=== PATIENT | female | born 1955 | race Caucasian/White ===

== ENCOUNTER 2017-02-12 07:40 | Inpatient (IN) | payer MEDICAID ==
[2017-02-12] MEDS ORDERED: CLINDAMYCIN HCL 150 MG CAPSULE PO ONE (09:35)
--- NOTE | 2017-02-12 10:22 | ER Document Report ---
ED General - General Chief Complaint: Leg Pain Stated Complaint: ARM/LEG PAIN Time Seen by Provider: 02/12/17 09:30 TRAVEL OUTSIDE OF THE [place] IN LAST 30 DAYS: No - HPI Patient complains to provider of: Left leg swelling and redness left elbow pain Notes: Patient with a history of chronic cellulitis coming in today for erythema. Patient ongoing for the last 3 days spreading. Patient denies fever chills nausea vomiting diarrhea. Patient denies any history of trauma. Patient also complaining of left elbow pain. Patient states increased pain with movement. No history of trauma. Patient alert and oriented no obvious distress upon my evaluation. Patient with multiple admissions and visits to the ER to the hospital for cellulitis in the past. Last antibiotic patient was always clindamycin per - Related Data Allergies/Adverse Reactions: No Known Allergies Allergy (Verified 02/12/17 07:43) Past Medical History - Social History Smoking Status: Former Smoker Chew tobacco use (# tins/day): No Frequency of alcohol use: None Drug Abuse: None Family History: Reviewed & Not Pertinent Patient has suicidal ideation: No Patient has homicidal ideation: No - Past Medical History Cardiac Medical History: Reports: Hx Hypertension - Not currently treated Denies: Hx Congestive Heart Failure, Hx Heart Attack Pulmonary Medical History: Reports: Hx Pneumonia Denies: Hx Asthma, Hx Bronchitis, Hx COPD, Hx Tuberculosis Neurological Medical History: Denies: Hx Seizures Endocrine Medical History: Denies: Hx Diabetes Mellitus Type 1, Hx Diabetes Mellitus Type 2 Renal/ Medical History: Denies: Hx End Stage Renal Disease, Hx Kidney Stones, Hx Peritoneal Dialysis GI Medical History: Denies: Hx Cirrhosis, Hx Gastroesophageal Reflux Disease, Hx Ulcer Musculoskeltal Medical History: Reports Hx Arthritis - feet, Denies Hx Multiple Sclerosis Skin Medical History: Reports Hx Cellulitis - LEFT LEG MAY 2011. Psychiatric Medical History: Reports: Hx Depression Denies: Hx Bipolar Disorder, Hx Schizophrenia Surgical Hx: Negative Past Surgical History: Reports: Hx Hysterectomy - Immunizations Hx Diphtheria, Pertussis, Tetanus Vaccination: Yes - unknown Hx Pneumococcal Vaccination: 05/22/14 Review of Systems - Review of Systems Constitutional: No symptoms reported EENT: No symptoms reported Cardiovascular: No symptoms reported Respiratory: No symptoms reported Gastrointestinal: No symptoms reported Genitourinary: No symptoms reported Female Genitourinary: No symptoms reported Musculoskeletal: Other - Leg swelling elbow pain Skin: No symptoms reported Hematologic/Lymphatic: No symptoms reported Neurological/Psychological: No symptoms reported Physical Exam - Vital signs Vitals: Temp Pulse Resp BP Pulse Ox 98.4 F 102 H 20 147/84 H 96 02/12/17 07:44 02/12/17 07:44 02/12/17 07:44 02/12/17 07:44 02/12/17 07:44 Interpretation: Normal - General General appearance: Appears well, Alert - HEENT Head: Normocephalic, Atraumatic Eyes: Normal Pupils: PERRL - Respiratory Respiratory status: No respiratory distress Chest status: Nontender Breath sounds: Normal Chest palpation: Normal - Cardiovascular Rhythm: Regular Heart sounds: Normal auscultation Murmur: No - Abdominal Inspection: Normal Distension: No distension Bowel sounds: Normal Tenderness: Nontender Organomegaly: No organomegaly - Back Back: Normal, Nontender - Extremities General upper extremity: Normal inspection, Tender - Patient palpation of the olecranon process also at the radial head patient has painful active and passive range of motion. No deformities appreciated. More likely patient experiencing muscle skeletal pain possible tendinitis., Normal color, Normal ROM , Normal temperature General lower extremity: Normal inspection, Nontender, Edema - 1+ edema with erythema from the ankle to the pretibial region, Normal color, Normal ROM, Normal temperature, Normal weight bearing. No: James's sign - Neurological Neuro grossly intact: Yes Cognition: Normal Orientation: AAOx4 [place] Coma Scale Eye Opening: Spontaneous [place] Coma Scale Verbal: Oriented [place] Coma Scale Motor: Obeys Commands Nohemi Coma Scale Total: 15 Speech: Normal Motor strength normal: LUE, RUE, LLE, RLE Sensory: Normal - Psychological Associated symptoms: Normal affect, Normal mood - Skin Skin Temperature: Warm Skin Moisture: Dry Skin Color: Normal Course - Re-evaluation Re-evalutation: 02/12/17 10:21 Patient with a history of chronic left lower extremity cellulitis has been treated in the past clindamycin. We will check basic lab work more likely disposition will be home with oral clindamycin. Patient will follow up with her primary care physician return to the ER if symptoms do not improve. Examination of the patient's elbow suggest tendinitis patient will be encouraged to use Tylenol Motrin anti-inflammatory medication for this pain. 02/12/17 16:23 With significant leukocytosis greater than on previous admissions still warranted at this time patient would require admission for IV antibiotics. Patient agrees hospitalist agrees patient was admitted to medical floor for further evaluation. - Vital Signs Vital signs: Temp Pulse Resp BP Pulse Ox 98.4 F 100 20 129/80 H 94 02/12/17 14:24 02/12/17 14:24 02/12/17 14:24 02/12/17 14:24 02/12/17 14:24 - Laboratory Result Diagrams: 02/12/17 09:48 02/12/17 09:48 Laboratory results interpreted by me: 02/12/17 02/12/17 09:48 09:48 WBC 24.6 H RDW 14.1 H Seg Neuts % (Manual) 91 H Band Neutrophils % 1 L Lymphocytes % (Manual) 6 L Monocytes % (Manual) 2 L Abs Neuts (Manual) 22.6 H Sodium 136.4 L Chloride 97 L Discharge - Discharge Clinical Impression: Left elbow tendinitis Cellulitis Qualifiers: Site of cellulitis: extremity Site of cellulitis of extremity: lower extremity Laterality: left Qualified Code(s): L03.116 - Cellulitis of left lower limb Disposition: ADMITTED INPATIENT Admitting Provider: Hospitalist - [facility] Admitted: Medical Floor
[2017-02-12 10:24] LABS: HEMATOCRIT 42.3 % (36.0-47.0); HEMOGLOBIN 13.7 g/dL (12.0-15.5); HGB HCT DIFFERENCE -1.2; MEAN CORPUSCULAR HEMOGLOBIN 30.2 pg (27.0-33.4); MEAN CORPUSCULAR HGB CONC 32.3 g/dL (32.0-36.0); MEAN CORPUSCULAR VOLUME 94 fl (80-97); RED BLOOD COUNT 4.52 10^6/uL (3.72-5.28); RED CELL DISTRIBUTION WIDTH 14.1 % (11.5-14.0); WHITE BLOOD COUNT 24.6 10^3/uL (4.0-10.5)
[2017-02-12 10:41] LABS: ANION GAP 14 (5-19); BLOOD UREA NITROGEN 17 mg/dL (7-20); CALCIUM 9.4 mg/dL (8.4-10.2); CARBON DIOXIDE 25 mmol/L (22-30); CHLORIDE 97 mmol/L (98-107); CREATININE RESULT 0.86 mg/dL (0.52-1.25); GLUCOSE 97 mg/dL (75-110); POTASSIUM 3.7 mmol/L (3.6-5.0); SODIUM 136.4 mmol/L (137-145)
[2017-02-12 10:42] LABS: BAND NEUTROPHILS % (MANUAL) 1 % (3-5); BASOPHILS % (MANUAL) 0 % (0-2); EOSINOPHILS % (MANUAL) 0 % (0-6); LYMPHOCYTES % (MANUAL) 6 % (13-45); TOTAL CELLS COUNTED 100
[2017-02-12 10:43] LABS: RBC MORPHOLOGY COMMENT NORMO-CYTIC/CHROMIC
[2017-02-12] MEDS ORDERED: LIDOCAINE 5% (700 MG) TRANSDERMAL ADH..PATCH TP ONE (11:02)
[2017-02-12] MEDS ORDERED: ZOLPIDEM TARTRATE 5 MG TABLET PO PRN (12:53)
[2017-02-12] MEDS ORDERED: ACETAMINOPHEN 325 MG TABLET PO PRN (12:53)
[2017-02-12] MEDS ORDERED: ONDANSETRON HCL INJ/PF 4 MG/2 ML SDV IV PRN (12:53)
[2017-02-12] MEDS ORDERED: KETOROLAC TROMETHAMINE INJ/PF 30 MG/1 ML SDV IV PRN (12:58)
--- NOTE | 2017-02-12 13:10 | PDOC H&P ---
History of Present Illness Admission Date/PCP: EDGARD LIANG MD Patient complains of: Left lower leg erythema worsening History of Present Illness: RAMYA CALLAHAN is a 61 year old female patient with a history of chronic cellulitis coming in today for erythema. Patient states this is ongoing for the last 3 days and worsening. Patient denies fever, chills, nausea, vomiting , and diarrhea. Patient denies any history of trauma. Patient also complaining of left elbow pain. Patient states increased pain with movement. No history of trauma. Patient alert and oriented no obvious distress upon my evaluation. Patient with multiple admissions and visits to the ER for cellulitis in the past, always in the left leg. Patient denies any injury to the leg. She was told she has problems with the veins in that leg. Past Medical History Cardiac Medical History: Reports: Hypertension - Not currently treated Denies: Congestive Heart Failure, Myocardial Infarction Pulmonary Medical History: Reports: Pneumonia Denies: Asthma, Bronchitis, Chronic Obstructive Pulmonary Disease (COPD), Tuberculosis EENT Medical History: Reports: None Neurological Medical History: Reports: None Denies: Seizures Endocrine Medical History: Reports: None Denies: Diabetes Mellitus Type 1, Diabetes Mellitus Type 2 Renal/ Medical History: Reports: None Denies: End Stage Renal Disease Malignancy Medical History: Reports: None GI Medical History: Denies: Cirrhosis, Gastroesophageal Reflux Disease Musculoskeltal Medical History: Reports: Arthritis - feet Skin Medical History: Reports: Other - recurrent cellulitis in left leg Psychiatric Medical History: Reports: None, Depression Denies: Bipolar Disorder Traumatic Medical History: Reports: None Hematology: Reports: None Denies: Anemia, Bleeding Tendencies Infectious Medical History: Reports: None Past Surgical History Past Surgical History: Reports: Hysterectomy Social History Information Source: Patient Lives with: Spouse/Significant other Smoking Status: Former Smoker Last Time Smoked: 20 + years ago Frequency of Alcohol Use: Occasional Hx Recreational Drug Use: No Drugs: None Hx Prescription Drug Abuse: No - Advance Directive Resuscitation Status: Full Code Surrogate healthcare decision maker:: , Binh Callahan Family History Family History: Reviewed & Not Pertinent, Hypertension Parental Family History Reviewed: Yes Children Family History Reviewed: Yes Sibling(s) Family History Reviewed.: Yes Medication/Allergy Allergies/Adverse Reactions: No Known Allergies Allergy (Verified 02/12/17 07:43) Review of Systems Constitutional: ABSENT: chills, fever(s), headache(s), weight gain, weight loss Eyes: ABSENT: visual disturbances Ears: ABSENT: hearing changes Cardiovascular: ABSENT: chest pain, dyspnea on exertion, edema, orthropnea, palpitations Respiratory: ABSENT: cough, hemoptysis Gastrointestinal: ABSENT: abdominal pain, constipation, diarrhea, hematemesis, hematochezia, nausea, vomiting Genitourinary: ABSENT: dysuria, hematuria Musculoskeletal: ABSENT: joint swelling Integumentary: PRESENT: erythema - Significant left leg erythema which has been worsening over the last 3 days Psychiatric: ABSENT: anxiety, depression, homidical ideation, suicidal ideation Endocrine: ABSENT: cold intolerance, heat intolerance, polydipsia, polyuria Hematologic/Lymphatic: ABSENT: easy bleeding, easy bruising Physical Exam Vital Signs: Temp Pulse Resp BP Pulse Ox 98.7 F 94 16 144/78 H 95 02/12/17 12:43 02/12/17 12:43 02/12/17 12:43 02/12/17 12:43 02/12/17 12:43 Intake & Output 02/11/17 02/12/17 02/13/17 06:59 06:59 06:59 Weight 108.8 kg General appearance: PRESENT: no acute distress, obese, well-developed, well- nourished Head exam: PRESENT: atraumatic Eye exam: PRESENT: conjunctival injection Ear exam: PRESENT: normal external ear exam Mouth exam: PRESENT: moist, tongue midline Neck exam: ABSENT: carotid bruit, JVD, lymphadenopathy, thyromegaly Respiratory exam: PRESENT: clear to auscultation heriberto. ABSENT: rales, rhonchi, wheezes Cardiovascular exam: PRESENT: RRR. ABSENT: diastolic murmur, rubs, systolic murmur Pulses: PRESENT: normal carotid pulses, normal radial pulses Vascular exam: PRESENT: normal capillary refill GI/Abdominal exam: PRESENT: normal bowel sounds, soft. ABSENT: distended, guarding, mass, organolmegaly, rebound, tenderness Rectal exam: PRESENT: deferred Extremities exam: PRESENT: calf tenderness, full ROM, +1 edema - left lower leg Musculoskeletal exam: PRESENT: ambulatory, full ROM, tenderness - left anterior leg Neurological exam: PRESENT: alert, awake, oriented to person, oriented to place , oriented to time, oriented to situation, CN II-XII grossly intact. ABSENT: motor sensory deficit Psychiatric exam: PRESENT: appropriate affect, normal mood. ABSENT: homicidal ideation, suicidal ideation Skin exam: PRESENT: dry, intact, warm. ABSENT: cyanosis, rash Results Laboratory Results: 02/12/17 09:48 02/12/17 09:48 02/12/17 02/12/17 09:48 09:48 WBC 24.6 H RBC 4.52 Hgb 13.7 Hct 42.3 MCV 94 MCH 30.2 MCHC 32.3 RDW 14.1 H Plt Count 265 Seg Neutrophils % Not Reportable Lymphocytes % Not Reportable Monocytes % Not Reportable Eosinophils % Not Reportable Basophils % Not Reportable Absolute Neutrophils Not Reportable Absolute Lymphocytes Not Reportable Absolute Monocytes Not Reportable Absolute Eosinophils Not Reportable Absolute Basophils Not Reportable Sodium 136.4 L Potassium 3.7 Chloride 97 L Carbon Dioxide 25 Anion Gap 14 BUN 17 Creatinine 0.86 Est GFR ( Amer) > 60 Est GFR (Non-Af Amer) > 60 Glucose 97 Calcium 9.4 Assessment & Plan - Diagnosis (1) Cellulitis Qualifiers: Site of cellulitis: extremity Site of cellulitis of extremity: lower extremity Laterality: left Qualified Code(s): L03.116 - Cellulitis of left lower limb Plan: Will start IV Zosyn and Vancomycin after blood cultures obtained (2) Left elbow tendinitis Is this a current diagnosis for this admission?: YesPlan: Start Naproxen 500 mg po bid. Elbow splint (3) Tinea pedis Qualifiers: Laterality: bilateral Qualified Code(s): B35.3 - Tinea pedis Is this a current diagnosis for this admission?: YesPlan: Clobetazole two times daily until resolved - Time Time Spent: 50 to 70 Minutes Critical Time spent with patient: 35 or more minutes Medications reviewed and adjusted accordingly: Yes
[2017-02-12] MEDS ORDERED: VANCOMYCIN HCL 0 MG in DEXTROSE 5%-WATER 250 ML IV NR (13:15)
[2017-02-12] MEDS ORDERED: CLOBETASOL PROPIONATE 0.05% CREAM 15 GM TP PRN (14:31)
[2017-02-12] MEDS: OXYCODONE-ACETAMINOPHEN 5-325 MG TABLET PO PRN ×2 (14:57→21:14)
[2017-02-12] MEDS ORDERED: VANCOMYCIN HCL 1,250 MG in DEXTROSE 5%-WATER 250 ML IV SCH (15:00)
[2017-02-12] MEDS: HEPARIN SOD (PORCINE) 5,000 UNIT/ML 1 ML SYRINGE SUBCUT SCH ×2 (15:07→21:18)
[2017-02-12] MEDS ORDERED: VANCOMYCIN HCL INJ 500 MG VIAL ONE (17:22)
[2017-02-12] MEDS ORDERED: VANCOMYCIN HCL INJ 1000 MG VIAL ONE (17:22)
[2017-02-12] MEDS: PIPERACILLIN SODIUM/TAZOBACTAM 4.5 GM in NORMAL SALINE 100 ML IV SCH ×2 (17:23→23:19)
[2017-02-12] MEDS: DOCUSATE SODIUM 100 MG CAPSULE PO SCH (17:24)
[2017-02-12] MEDS ORDERED: NAPROXEN 250 MG TABLET ONE (17:28)
[2017-02-12] MEDS: NAPROXEN 250 MG TABLET PO SCH (18:04)
[2017-02-12] MEDS: VANCOMYCIN HCL 1,250 MG in DEXTROSE 5%-WATER 250 ML IV SCH (22:07)
[2017-02-13] MEDS: PIPERACILLIN SODIUM/TAZOBACTAM 4.5 GM in NORMAL SALINE 100 ML IV SCH ×4 (05:13→23:17)
[2017-02-13] MEDS: HEPARIN SOD (PORCINE) 5,000 UNIT/ML 1 ML SYRINGE SUBCUT SCH ×3 (05:14→21:39)
[2017-02-13 05:55] LABS: ANION GAP 10 (5-19); BLOOD UREA NITROGEN 22 mg/dL (7-20); CALCIUM 8.8 mg/dL (8.4-10.2); CARBON DIOXIDE 28 mmol/L (22-30); CHLORIDE 101 mmol/L (98-107); CREATININE RESULT 0.97 mg/dL (0.52-1.25); GLUCOSE 110 mg/dL (75-110); SODIUM 138.6 mmol/L (137-145)
[2017-02-13 05:59] LABS: POTASSIUM 3.5 mmol/L (3.6-5.0)
[2017-02-13 06:34] LABS: ABSOLUTE EOSINOPHILS # (AUTO) 0.1 10^3/uL (0.0-0.6); ABSOLUTE LYMPHOCYTES (AUTO) 1.1 10^3/uL (0.5-4.7); ABSOLUTE MONOCYTES (AUTO) 1.1 10^3/uL (0.1-1.4); ABSOLUTE NEUT (AUTO) 10.6 10^3/uL (1.7-8.2); BASOPHILS % (AUTO) 0.3 % (0-2); EOSINOPHILS % (AUTO) 0.7 % (0-6); HEMATOCRIT 39.3 % (36.0-47.0); HEMOGLOBIN 13.1 g/dL (12.0-15.5); LYMPHOCYTES % (AUTO) 8.3 % (13-45); MEAN CORPUSCULAR HEMOGLOBIN 30.8 pg (27.0-33.4); MEAN CORPUSCULAR HGB CONC 33.2 g/dL (32.0-36.0); MEAN CORPUSCULAR VOLUME 93 fl (80-97); MONOCYTES % (AUTO) 8.5 % (3-13); RED BLOOD COUNT 4.24 10^6/uL (3.72-5.28); RED CELL DISTRIBUTION WIDTH 14.4 % (11.5-14.0); SEGMENTED NEUTROPHILS % (AUTO) 82.2 % (42-78); WHITE BLOOD COUNT 12.9 10^3/uL (4.0-10.5)
[2017-02-13] MEDS: OXYCODONE-ACETAMINOPHEN 5-325 MG TABLET PO PRN ×3 (07:31→21:52)
[2017-02-13] MEDS: NAPROXEN 250 MG TABLET PO SCH ×2 (09:01→17:36)
[2017-02-13] MEDS: DOCUSATE SODIUM 100 MG CAPSULE PO SCH ×2 (09:01→17:36)
[2017-02-13] MEDS: VANCOMYCIN HCL 1,250 MG in DEXTROSE 5%-WATER 250 ML IV SCH ×2 (09:03→21:03)
[2017-02-13] MEDS: TRIAMTERENE/HYDROCHLOROTHIAZID 75-50 MG TABLET PO SCH (10:03)
[2017-02-13] MEDS: LIDOCAINE 5% (700 MG) TRANSDERMAL ADH..PATCH TP SCH (10:12)
--- NOTE | 2017-02-13 15:52 | PDOC PROGRESS REPORT ---
Subjective Progress Note for:: 02/13/17 Subjective:: Patient is seen on morning rounds. She is sitting on the side of the bed eating breakfast. She states she feels better than yesterday. She denies any fevers or chills overnight. She states her left leg pain is improved as is the redness an swelling. She denies any nausea, vomiting or Physical Exam Vital Signs: Temp Pulse Resp BP Pulse Ox 97.6 F 74 20 138/78 H 95 02/13/17 11:36 02/13/17 11:36 02/13/17 11:36 02/13/17 11:36 02/13/17 11:36 Intake & Output 02/12/17 02/13/17 02/14/17 06:59 06:59 06:59 Intake Total 480 400 Balance 480 400 Weight 108.7 kg General appearance: PRESENT: no acute distress, well-developed, well-nourished Head exam: PRESENT: atraumatic, normocephalic Eye exam: PRESENT: conjunctiva pink, EOMI, PERRLA. ABSENT: scleral icterus Ear exam: PRESENT: normal external ear exam Mouth exam: PRESENT: moist, tongue midline Neck exam: ABSENT: carotid bruit, JVD, lymphadenopathy, thyromegaly Respiratory exam: PRESENT: clear to auscultation heriberto. ABSENT: rales, rhonchi, wheezes Cardiovascular exam: PRESENT: RRR. ABSENT: diastolic murmur, rubs, systolic murmur Pulses: PRESENT: normal dorsalis pedis pul Vascular exam: PRESENT: normal capillary refill GI/Abdominal exam: PRESENT: normal bowel sounds, soft. ABSENT: distended, guarding, mass, organolmegaly, rebound, tenderness Rectal exam: PRESENT: deferred Extremities exam: PRESENT: full ROM. ABSENT: calf tenderness, clubbing, pedal edema Musculoskeletal exam: PRESENT: ambulatory, full ROM - left anterior erythema, tenderness, other Neurological exam: PRESENT: alert, awake, oriented to person, oriented to place , oriented to time, oriented to situation, CN II-XII grossly intact. ABSENT: motor sensory deficit Psychiatric exam: PRESENT: appropriate affect, normal mood. ABSENT: homicidal ideation, suicidal ideation Skin exam: PRESENT: dry, intact, warm. ABSENT: cyanosis, rash Results Laboratory Results: 02/13/17 05:19 02/13/17 05:19 02/13/17 02/13/17 05:19 05:19 WBC 12.9 H RBC 4.24 Hgb 13.1 Hct 39.3 MCV 93 MCH 30.8 MCHC 33.2 RDW 14.4 H Plt Count 198 Seg Neutrophils % 82.2 H Lymphocytes % 8.3 L Monocytes % 8.5 Eosinophils % 0.7 Basophils % 0.3 Absolute Neutrophils 10.6 H Absolute Lymphocytes 1.1 Absolute Monocytes 1.1 Absolute Eosinophils 0.1 Absolute Basophils 0.0 Sodium 138.6 Potassium 3.5 L Chloride 101 Carbon Dioxide 28 Anion Gap 10 BUN 22 H Creatinine 0.97 Est GFR ( Amer) > 60 Est GFR (Non-Af Amer) 58 L Glucose 110 Calcium 8.8 Assessment & Plan - Diagnosis (1) Cellulitis Qualifiers: Site of cellulitis: extremity Site of cellulitis of extremity: lower extremity Laterality: left Qualified Code(s): L03.116 - Cellulitis of left lower limb Plan: Will start IV Zosyn and Vancomycin after blood cultures obtained (2) Left elbow tendinitis Is this a current diagnosis for this admission?: YesPlan: Start Naproxen 500 mg po bid. Elbow splint (3) Tinea pedis Qualifiers: Laterality: bilateral Qualified Code(s): B35.3 - Tinea pedis Is this a current diagnosis for this admission?: YesPlan: Clobetazole two times daily until resolved - Time Time Spent with patient: 25-34 minutes Critical Time spent with patient: 15-24 minutes Medications reviewed and adjusted accordingly: Yes Anticipated discharge: Home with Homehealth
[2017-02-14 05:37] LABS: ABSOLUTE BASOPHILS # (AUTO) 0.1 10^3/uL (0.0-0.2); ABSOLUTE EOSINOPHILS # (AUTO) 0.3 10^3/uL (0.0-0.6); ABSOLUTE LYMPHOCYTES (AUTO) 1.1 10^3/uL (0.5-4.7); ABSOLUTE MONOCYTES (AUTO) 0.8 10^3/uL (0.1-1.4); ABSOLUTE NEUT (AUTO) 3.8 10^3/uL (1.7-8.2); BASOPHILS % (AUTO) 1.3 % (0-2); EOSINOPHILS % (AUTO) 4.6 % (0-6); HEMATOCRIT 39.5 % (36.0-47.0); HEMOGLOBIN 13.1 g/dL (12.0-15.5); HGB HCT DIFFERENCE -0.2; LYMPHOCYTES % (AUTO) 18.2 % (13-45); MEAN CORPUSCULAR HEMOGLOBIN 31.2 pg (27.0-33.4); MEAN CORPUSCULAR HGB CONC 33.1 g/dL (32.0-36.0); MEAN CORPUSCULAR VOLUME 94 fl (80-97); MONOCYTES % (AUTO) 12.9 % (3-13); RED BLOOD COUNT 4.19 10^6/uL (3.72-5.28); WHITE BLOOD COUNT 6.1 10^3/uL (4.0-10.5)
[2017-02-14 05:52] LABS: ANION GAP 13 (5-19); BLOOD UREA NITROGEN 23 mg/dL (7-20); CALCIUM 9.4 mg/dL (8.4-10.2); CARBON DIOXIDE 27 mmol/L (22-30); CHLORIDE 101 mmol/L (98-107); CREATININE RESULT 0.76 mg/dL (0.52-1.25); GLUCOSE 103 mg/dL (75-110); POTASSIUM 4.1 mmol/L (3.6-5.0); SODIUM 140.9 mmol/L (137-145)
[2017-02-14] MEDS: PIPERACILLIN SODIUM/TAZOBACTAM 4.5 GM in NORMAL SALINE 100 ML IV SCH ×3 (06:12→17:35)
[2017-02-14] MEDS: HEPARIN SOD (PORCINE) 5,000 UNIT/ML 1 ML SYRINGE SUBCUT SCH ×3 (06:12→21:55)
[2017-02-14] MEDS: NAPROXEN 250 MG TABLET PO SCH ×2 (08:31→17:35)
[2017-02-14] MEDS: VANCOMYCIN HCL 1,250 MG in DEXTROSE 5%-WATER 250 ML IV SCH ×2 (08:31→21:55)
[2017-02-14] MEDS: LIDOCAINE 5% (700 MG) TRANSDERMAL ADH..PATCH TP SCH (09:40)
[2017-02-14] MEDS: DOCUSATE SODIUM 100 MG CAPSULE PO SCH ×2 (09:40→17:35)
[2017-02-14] MEDS: TRIAMTERENE/HYDROCHLOROTHIAZID 75-50 MG TABLET PO SCH (09:40)
--- NOTE | 2017-02-14 15:31 | PDOC PROGRESS REPORT ---
Subjective Progress Note for:: 02/14/17 Subjective:: Patient is seen on morning rounds. She is sitting on the side of the bed eating breakfast. She states she feels better than yesterday. She denies any fevers or chills overnight. She states her left leg pain is improved as is the redness an swelling. She denies any nausea, vomiting or Physical Exam Vital Signs: Temp Pulse Resp BP Pulse Ox 97.4 F 75 18 109/84 97 02/14/17 11:07 02/14/17 11:07 02/14/17 11:07 02/14/17 11:07 02/14/17 11:07 Intake & Output 02/13/17 02/14/17 02/15/17 06:59 06:59 06:59 Intake Total 480 1970 400 Balance 480 1970 400 Weight 108.7 kg 110 kg General appearance: PRESENT: no acute distress, obese, well-developed, well- nourished Head exam: PRESENT: atraumatic, normocephalic Eye exam: PRESENT: conjunctiva pink, EOMI, PERRLA. ABSENT: scleral icterus Ear exam: PRESENT: normal external ear exam Mouth exam: PRESENT: moist, tongue midline Neck exam: ABSENT: carotid bruit, JVD, lymphadenopathy, thyromegaly Respiratory exam: PRESENT: clear to auscultation heriberto. ABSENT: rales, rhonchi, wheezes Cardiovascular exam: PRESENT: RRR. ABSENT: diastolic murmur, rubs, systolic murmur Pulses: PRESENT: normal carotid pulses, normal radial pulses, normal dorsalis pedis pul Vascular exam: PRESENT: normal capillary refill, other - chronic venous stasis changes left lower leg GI/Abdominal exam: PRESENT: normal bowel sounds, soft. ABSENT: distended, guarding, mass, organolmegaly, rebound, tenderness Rectal exam: PRESENT: deferred Extremities exam: PRESENT: calf tenderness, full ROM - left anterior calf, tenderness, +1 edema Musculoskeletal exam: PRESENT: ambulatory, full ROM, tenderness - left lower extremity Neurological exam: PRESENT: alert, awake, oriented to person, oriented to place , oriented to time, oriented to situation, CN II-XII grossly intact. ABSENT: motor sensory deficit Psychiatric exam: PRESENT: appropriate affect, normal mood. ABSENT: homicidal ideation, suicidal ideation Skin exam: PRESENT: dry, intact, warm. ABSENT: cyanosis, rash Results Laboratory Results: 02/14/17 05:25 02/14/17 05:25 02/14/17 02/14/17 05:25 05:25 WBC 6.1 RBC 4.19 Hgb 13.1 Hct 39.5 MCV 94 MCH 31.2 MCHC 33.1 RDW 14.0 Plt Count 220 Seg Neutrophils % 63.0 Lymphocytes % 18.2 Monocytes % 12.9 Eosinophils % 4.6 Basophils % 1.3 Absolute Neutrophils 3.8 Absolute Lymphocytes 1.1 Absolute Monocytes 0.8 Absolute Eosinophils 0.3 Absolute Basophils 0.1 Sodium 140.9 Potassium 4.1 Chloride 101 Carbon Dioxide 27 Anion Gap 13 BUN 23 H Creatinine 0.76 Est GFR ( Amer) > 60 Est GFR (Non-Af Amer) > 60 Glucose 103 Calcium 9.4 Assessment & Plan - Diagnosis (1) Cellulitis Qualifiers: Site of cellulitis: extremity Site of cellulitis of extremity: lower extremity Laterality: left Qualified Code(s): L03.116 - Cellulitis of left lower limb Plan: Continue IV antibiotics for 24 more hours. Will transition to oral antibitotics tomorrow and discharge (2) Left elbow tendinitis Is this a current diagnosis for this admission?: YesPlan: Start Naproxen 500 mg po bid. Elbow splint (3) Tinea pedis Qualifiers: Laterality: bilateral Qualified Code(s): B35.3 - Tinea pedis Is this a current diagnosis for this admission?: YesPlan: Clobetazole two times daily until resolved - Time Time Spent with patient: 25-34 minutes Critical Time spent with patient: 15-24 minutes Medications reviewed and adjusted accordingly: Yes Anticipated discharge: Home with Homehealth Within: within 24 hours
[2017-02-14 21:27] LABS: CREATININE RESULT 0.85 mg/dL (0.52-1.25)
[2017-02-15] MEDS: PIPERACILLIN SODIUM/TAZOBACTAM 4.5 GM in NORMAL SALINE 100 ML IV SCH ×2 (00:53→05:45)
[2017-02-15] MEDS: OXYCODONE-ACETAMINOPHEN 5-325 MG TABLET PO PRN (00:53)
[2017-02-15] MEDS: HEPARIN SOD (PORCINE) 5,000 UNIT/ML 1 ML SYRINGE SUBCUT SCH (05:41)
[2017-02-15] MEDS: NAPROXEN 250 MG TABLET PO SCH (08:21)
[2017-02-15] MEDS: TRIAMTERENE/HYDROCHLOROTHIAZID 75-50 MG TABLET PO SCH (08:22)
[2017-02-15] MEDS: LIDOCAINE 5% (700 MG) TRANSDERMAL ADH..PATCH TP SCH (08:22)
[2017-02-15] MEDS: DOCUSATE SODIUM 100 MG CAPSULE PO SCH (08:23)
[2017-02-15] MEDS: VANCOMYCIN HCL 1,250 MG in DEXTROSE 5%-WATER 250 ML IV SCH (08:23)
[2017-02-15 08:54] VITALS: BP 128/48
--- NOTE | 2017-02-15 10:45 | PDOC DISCHARGE SUMMARY ---
General - Admit/Disc Date/PCP Admission Date/Primary Care Provider: 02/12/17 13:36 DANIEL JAMISON MD Discharge Date: 02/15/17 - Discharge Diagnosis (1) Cellulitis Is this a current diagnosis for this admission?: YesSummary: MUCH IMPROVED. stable for d/c home on another 10d of augmentin and f/u with PCP in one week. (2) Left elbow tendinitis Is this a current diagnosis for this admission?: YesSummary: improved. short course of analgesics and f/u as needed with her PCP for this (3) Tinea pedis Is this a current diagnosis for this admission?: YesSummary: continue OTC topical care for this (4) Diarrhea Is this a current diagnosis for this admission?: YesSummary: new. likely due to diet and abx while hospitalized. she is having semi formed stools and no abd pain and no fevers or melena, hematochezia, etc. to suggest colitis, cdiff or otherwise. stool for c diff pending as she's had prior exposure via her 's cdiff colitis many years ago. hold on imodium or other Rxs to slow her down until final results available., low suspicion based on clinical exam. f/u with PCP in next 24hrs for final results and seek immediate medical attention for worsening symptoms. - Additional Information Resuscitation Status: Full Code Discharge Diet: As Tolerated Discharge Activity: Activity As Tolerated Home Medications: Ibuprofen [Motrin 600 mg Tablet] 600 mg PO Q8HP PRN 02/12/17 Triamterene/Hydrochlorothiazid [Triamterene-Hctz 75-50 mg Tab] 1 tab PO DAILY Amox Tr/Potassium Clavulanate [Augmentin 875-125 mg Tablet] 1 tab PO BID #20 tablet 02/15/17 Lactobacillus Acidophilus [Acidophilus Lactobacilli] 1 each PO BID #60 capsule 02/15/17 Oxycodone HCl/Acetaminophen [Percocet 5-325 mg Tablet] 1 tab PO Q4HP PRN #10 tablet 02/15/17 History of Present Illness Patient complains of: pain and swelling in her leg History of Present Illness: RAMYA CALLAHAN is a 61 year old female patient with a history of chronic cellulitis coming in today for erythema. Patient states this is ongoing for the last 3 days and worsening. Hospital Course Hospital Course: Patient denies fever, chills, nausea, vomiting, and diarrhea. Patient denies any history of trauma. Patient also complaining of left elbow pain. Patient states increased pain with movement. No history of trauma. Patient alert and oriented no obvious distress upon my evaluation. Patient with multiple admissions and visits to the ER for cellulitis in the past, always in the left leg. Patient denies any injury to the leg. She was told she has problems with the veins in that leg. she was admitted and started on broad spectrum abx with good improvement in her cellulitis; blood cultures negative and she istable for d/c home at this time to compleete a course of augmentin. she will need close outpt fu with her PCP in one week to see this through to resolution. Physical Exam Vital Signs: Temp Pulse Resp BP Pulse Ox 97.7 F 90 20 128/48 H 95 02/15/17 08:52 02/15/17 08:52 02/15/17 08:52 02/15/17 08:52 02/15/17 08:52 Intake & Output 02/14/17 02/15/17 02/16/17 06:59 06:59 06:59 Intake Total 1970 640 Balance 1970 640 Weight 110 kg 109.5 kg General appearance: PRESENT: no acute distress Eye exam: PRESENT: conjunctival injection, EOMI Respiratory exam: PRESENT: clear to auscultation heriberto. ABSENT: accessory muscle use GI/Abdominal exam: PRESENT: normal bowel sounds, soft. ABSENT: tenderness Neurological exam: PRESENT: alert, awake Results Laboratory Results: 02/14/17 05:25 02/14/17 20:48 02/14/17 20:48 Creatinine 0.85 Est GFR ( Amer) > 60 Est GFR (Non-Af Amer) > 60 Qualifiers PATEINT BEING DISCHARGED WITH ANY OF THE FOLLOWING DIAGNOSIS?: No VTE patient discharged on overlapping Therapy?: No Reason(s) for not prescribing Overlap Therapy:: Not indicated Plan Discharge Plan: home on abx as noted above Time Spent: Greater than 30 Minutes
== END 2017-02-15 11:40 | disposition home or self-care (01) | DRG 603 ==
LOC: ER 07:40 → EH 12:53 → UNDOADMIN 12:53 → EH 13:01 → UNDOADMIN 13:01 → EH 13:36 → 2N 14:15 → EH 14:15
PROVIDERS: ADMIT Family Medicine; ATTEND Family Medicine
DX: L03.116 Cellulitis of left lower limb (principal); M77.9 Enthesopathy, unspecified; B35.3 Tinea pedis; R19.7 Diarrhea, unspecified; I10 Essential (primary) hypertension; M19.072 Primary osteoarthritis, left ankle and foot; M19.071 Primary osteoarthritis, right ankle and foot; Z79.899 Other long term (current) drug therapy; F32.9 Major depressive disorder, single episode, unspecified; Z90.710 Acquired absence of both cervix and uterus; Z87.891 Personal history of nicotine dependence; Z82.49 Family history of ischemic heart disease and other diseases of the circulatory system
CPT/HCPCS: 36415; 80048; 80202; 82565; 85025; 87040; 87493; 99284; J1644; J2543; J3370; J3490; J7060

== ENCOUNTER 2017-11-11 11:41 | Emergency (ER) | payer MEDICAID, MEDICARE ==
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
[2017-11-11 14:38] VITALS: BP 170/69
== END 2017-11-11 13:50 | disposition home or self-care (01) ==
LOC: ER 11:41
DX: L03.116 Cellulitis of left lower limb (principal); M54.2 Cervicalgia; Y04.2XXA Assault by strike against or bumped into by another person, initial encounter; Z87.891 Personal history of nicotine dependence; Z90.710 Acquired absence of both cervix and uterus
CPT/HCPCS: 72125; 99284

== ENCOUNTER 2017-12-27 09:05 | Emergency (ER) | payer MEDICARE ==
[2017-12-27 09:12] VITALS: BP 153/89
--- NOTE | 2017-12-27 09:30 | ER Document Report ---
ED Skin Rash/Insect Bite/Abscs - General Chief Complaint: Skin Problem Stated Complaint: SKIN PROBLEM Time Seen by Provider: 12/27/17 09:15 Mode of Arrival: Ambulatory Information source: Patient TRAVEL OUTSIDE OF THE [place] IN LAST 30 DAYS: No - HPI Patient complains to provider of: Skin rash/lesion Onset: Yesterday Notes: Patient is here with complaints of rash to her left buttock. She states that this started yesterday. It is itchy and somewhat painful. She also complains of pain in her left shoulder which she states is chronic. She states that she is received a few steroid injections in the joint on her last was several months ago and the pain has returned. She denies any chest pain or shortness of breath. She denies new injuries or falls. She denies any nausea, vomiting, diarrhea. No numbness, tingling weakness. No headache or blurred vision. No fevers. No other complaints at this time. - Related Data Allergies/Adverse Reactions: No Known Allergies Allergy (Verified 12/27/17 09:06) Past Medical History - Social History Smoking Status: Unknown if Ever Smoked Family History: Reviewed & Not Pertinent - Past Medical History Cardiac Medical History: Reports: Hx Hypertension - Not currently treated Denies: Hx Congestive Heart Failure, Hx Heart Attack Pulmonary Medical History: Reports: Hx Pneumonia Denies: Hx Asthma, Hx Bronchitis, Hx COPD, Hx Tuberculosis Neurological Medical History: Denies: Hx Seizures Endocrine Medical History: Denies: Hx Diabetes Mellitus Type 1, Hx Diabetes Mellitus Type 2 Renal/ Medical History: Denies: Hx End Stage Renal Disease, Hx Kidney Stones, Hx Peritoneal Dialysis GI Medical History: Denies: Hx Cirrhosis, Hx Gastroesophageal Reflux Disease, Hx Ulcer Musculoskeltal Medical History: Reports Hx Arthritis - feet, Denies Hx Multiple Sclerosis Skin Medical History: Reports Hx Cellulitis - LEFT LEG MAY 2011. Psychiatric Medical History: Reports: Hx Depression Denies: Hx Bipolar Disorder, Hx Schizophrenia Past Surgical History: Reports: Hx Hysterectomy - Immunizations Hx Diphtheria, Pertussis, Tetanus Vaccination: Yes - unknown Hx Pneumococcal Vaccination: 05/22/14 Review of Systems - Review of Systems -: Yes All other systems reviewed and negative Physical Exam - Vital signs Vitals: Temp Pulse Resp BP Pulse Ox 97.7 F 84 20 153/89 H 95 12/27/17 09:10 12/27/17 09:10 12/27/17 09:10 12/27/17 09:10 12/27/17 09:10 - Notes Notes: GENERAL: alert, cooperative, nontoxic, no distress. HEAD: normocephalic, atraumatic EYES: conjunctiva pink without discharge, no external redness or swelling. EARS: no external swelling, no external redness NOSE: atraumatic, no external swelling MOUTH/THROAT: mucous membranes moist and pink NECK: soft, supple, full range of motion, no meningismus. CHEST: no distress, lungs clear and equal throughout. No wheezing, rales, rhonchi. CARDIAC: regular rate and rhythm, no murmur, normal capillary refill, normal pulses. BACK: full range of motion, no CVA tenderness. EXTREMITIES: full range of motion of all extremities. No redness, no swelling. Mild tenderness to the left shoulder. Normal pulse and sensation. NEURO: alert and oriented 3, no focal deficits, full range of motion of all extremities. PYSCH: appropriate mood, affect. Patient is cooperative. SKIN: pink, warm, dry, small area of a cluster of pustules to the left buttock. No surrounding cellulitis. No fluctuant area. No abscess. No drainage. Course - Re-evaluation Re-evalutation: 12/27/17 09:33 Patient is nontoxic appearing with stable vitals. She is here with complaints of rash to the left buttock. She is a small area of folliculitis in this area. There is no drainable abscess or cellulitis. Patient has a long history of cellulitis in the past. At this point the patient will be placed on Keflex for that. Also complaining of some chronic left shoulder pain. She thinks that she may need another steroid injection in this joint. Patient has not seen orthopedics. I will refer her to orthopedics due to her chronic left shoulder pain. Patient is instructed to follow-up with her doctor if not improving in the next few days, follow-up sooner for worsening pain, fever, redness, drainage , any further concerns. The patient is noted to have elevated blood pressure during today's emergency department visit. The patient was informed of this finding. The patient was instructed that this may be related to pre-hypertension and requires further evaluation with a primary care provider. The patient has no hypertensive symptoms at this time. The patient's emergency department workup and current diagnosis were explained to the patient and or family. Follow-up instructions were provided. Medications if prescribed were discussed. Instructions for when to return to the emergency department including specific worrisome symptoms were discussed with the patient and/or family. - Vital Signs Vital signs: Temp Pulse Resp BP Pulse Ox 97.7 F 84 20 153/89 H 95 12/27/17 09:10 12/27/17 09:10 12/27/17 09:10 12/27/17 09:10 12/27/17 09:10 Discharge - Discharge Clinical Impression: Folliculitis, Chronic left shoulder pain Condition: Stable Disposition: HOME, SELF-CARE Instructions: Folliculitis ([facility]) Additional Instructions: Take medications as prescribed. Keep area clean and dry. Follow-up with your doctor at the next available appointment, sooner for worsening pain, fever, redness, drainage, numbness, tingling, weakness, any further concerns. Your blood pressure was elevated during today's visit. Have this rechecked with your doctor. Prescriptions: Cephalexin Monohydrate [Keflex 500 mg Capsule] 500 mg PO Q6H #40 capsule Forms: Elevated Blood Pressure, Smoking Cessation Education Referrals: MARCIAL THAYER MD [Primary Care Provider] - Follow up as needed ROMAN STEEN MD [ACTIVE STAFF] - Follow up as needed
== END 2017-12-27 09:32 | disposition home or self-care (01) ==
LOC: ER 09:05
DX: L73.9 Follicular disorder, unspecified (principal); G89.29 Other chronic pain; M25.511 Pain in right shoulder; I10 Essential (primary) hypertension; Z90.710 Acquired absence of both cervix and uterus
CPT/HCPCS: 99283

== ENCOUNTER → 2018-02-08 | Outpatient (CLI) | payer MEDICARE, MEDICAID ==
--- NOTE | 2018-02-08 14:47 | RADIOLOGY REPORT (SQ) ---
EXAM DESCRIPTION: VENOUS UNILATERAL LOWER COMPLETED DATE/TIME: 02/08/2018 2:00 pm REASON FOR STUDY: LLE SWELLING M79.89 OTHER SPECIFIED SOFT TISSUE DISORDERS COMPARISON: March 2016 TECHNIQUE: Dynamic and static ovalles scale and color images acquired of the left leg venous system. Se lected spectral images acquired with additional compression and augmentation maneuvers. The contralat eral common femoral vein and saphenofemoral junction were also imaged. Images stored on PACS. LIMITATIONS: None. FINDINGS: COMMON FEMORAL: Normal phasicity, compression and augmentation. No visualized echogenic ma terial on ovalles scale. No defects on color images. FEMORAL: Normal compression and augmentation. No visualized echogenic material on ovalles scale. No defe cts on color images. POPLITEAL: Normal compression, augmentation. No visualized echogenic material on ovalles scale. No defec ts on color images. CALF VESSELS: Normal compression, augmentation. No visualized echogenic material on ovalles scale. No de fects on color images. GSV and SSV: Normal compression, augmentation. No visualized echogenic material on ovalles scale. No def ects on color images. ANY DEEP VENOUS INSUFFICIENCY: Not evaluated. ANY EVIDENCE OF POPLITEAL CYST: No. OTHER: No other significant finding. CONTRALATERAL COMMON FEMORAL VEIN AND SAPHENOFEMORAL JUNCTION: Normal phasicity, compression and augmentation. No visualized echogenic material on ovalles scale. No de fects on color images. IMPRESSION: NO EVIDENCE DVT OR SVT IN THE LEFT LEG. TECHNICAL DOCUMENTATION: JOB ID: [id number] [employer]- All Rights Reserved Reading location - IP/workstation name: [email or web address]
== END ==
LOC: SP 12:38
PROVIDERS: ATTEND Family Medicine
DX: M79.89 Other specified soft tissue disorders (principal)
CPT/HCPCS: 93971

== ENCOUNTER 2018-11-01 10:37 | Emergency (ER) | payer MEDICAID, MEDICARE ==
--- NOTE | 2018-11-01 11:42 | ER Document Report ---
ED Medical Screen (RME) - General Chief Complaint: Leg Pain Stated Complaint: LEG PAIN Primary Care Provider: MARCIAL THAYER MD [Primary Care Provider] - Follow up as needed TRAVEL OUTSIDE OF THE [place] IN LAST 30 DAYS: No - HPI Notes: 11/01/18 11:41 Patient complained of left lower extremity swelling and redness. She denies any history of fall or trauma recently. She also denies any history of shortness of breath or chest pain. - Related Data Allergies/Adverse Reactions: No Known Allergies Allergy (Verified 11/01/18 10:40) Past Medical History - Social History Chew tobacco use (# tins/day): No Frequency of alcohol use: None Drug Abuse: None Family history: Reviewed & Not Pertinent - Past Medical History Cardiac Medical History: Reports: Hx Hypertension - Not currently treated Denies: Hx Congestive Heart Failure, Hx Heart Attack Pulmonary Medical History: Reports: Hx Pneumonia Denies: Hx Asthma, Hx Bronchitis, Hx COPD, Hx Tuberculosis Neurological Medical History: Denies: Hx Seizures Endocrine Medical History: Denies: Hx Diabetes Mellitus Type 1, Hx Diabetes Mellitus Type 2 Renal/ Medical History: Denies: Hx End Stage Renal Disease, Hx Kidney Stones, Hx Peritoneal Dialysis GI Medical History: Denies: Hx Cirrhosis, Hx Gastroesophageal Reflux Disease, Hx Ulcer Musculoskeltal Medical History: Reports Hx Arthritis - feet, Denies Hx Multiple Sclerosis Skin Medical History: Reports Hx Cellulitis - LEFT LEG MAY 2011. Psychiatric Medical History: Reports: Hx Depression Denies: Hx Bipolar Disorder, Hx Schizophrenia Past Surgical History: Reports: Hx Hysterectomy - Immunizations Hx Diphtheria, Pertussis, Tetanus Vaccination: Yes - unknown Physical Exam - Vital signs Vitals: Temp Pulse Resp BP Pulse Ox 97.8 F 89 18 141/94 H 95 11/01/18 10:58 11/01/18 10:58 11/01/18 10:58 11/01/18 10:58 11/01/18 10:58 Course - Vital Signs Vital signs: Temp Pulse Resp BP Pulse Ox 97.8 F 89 18 141/94 H 95 11/01/18 10:58 11/01/18 10:58 11/01/18 10:58 11/01/18 10:58 11/01/18 10:58 Doctor's Discharge - Discharge Referrals: MARCIAL THAYER MD [Primary Care Provider] - Follow up as needed
[2018-11-01 12:17] LABS: ABSOLUTE BASOPHILS # (AUTO) 0.1 10^3/uL (0.0-0.2); ABSOLUTE EOSINOPHILS # (AUTO) 0.3 10^3/uL (0.0-0.6); ABSOLUTE LYMPHOCYTES (AUTO) 1.5 10^3/uL (0.5-4.7); ABSOLUTE MONOCYTES (AUTO) 0.8 10^3/uL (0.1-1.4); ABSOLUTE NEUT (AUTO) 6.8 10^3/uL (1.7-8.2); EOSINOPHILS % (AUTO) 2.7 % (0-6); HEMATOCRIT 42.5 % (36.0-47.0); HEMOGLOBIN 14.7 g/dL (12.0-15.5); LYMPHOCYTES % (AUTO) 16.1 % (13-45); MEAN CORPUSCULAR HGB CONC 34.7 g/dL (32.0-36.0); MEAN CORPUSCULAR VOLUME 92 fl (80-97); PLATELET COUNT 298 10^3/uL (150-450); RED BLOOD COUNT 4.61 10^6/uL (3.72-5.28); RED CELL DISTRIBUTION WIDTH 13.5 % (11.5-14.0); SEGMENTED NEUTROPHILS % (AUTO) 72.2 % (42-78); TOTAL CELLS COUNTED % (AUTO) 100 %; WHITE BLOOD COUNT 9.4 10^3/uL (4.0-10.5)
[2018-11-01 12:22] LABS: INTERNATIONAL RATION (INR) 0.87; PROTHROMBIN TIME 12.3 SEC (11.4-15.4)
--- NOTE | 2018-11-01 14:29 | ER Document Report ---
ED General - General Chief Complaint: Leg Pain Stated Complaint: LEG PAIN Time Seen by Provider: 11/01/18 14:09 Primary Care Provider: MARCIAL THAYER MD [Primary Care Provider] - Follow up as needed TRAVEL OUTSIDE OF THE [place] IN LAST 30 DAYS: No - HPI Notes: Patient is a 62-year-old female who presents to the emergency department complaining of the start of some mild redness to the anterior left lower leg over the last couple days. Patient states that this leg is prone to cellulitis and she wants to be placed on antibiotic. Patient states that she has not had any other acute changes in her swelling and has chronic bilateral lower extremity edema. Patient states that aside from the redness she has no other concerns or complaints. She is eating and drinking without difficulty. She is urinating normally and having normal bowel movements. She does not have any associated chest pain, shortness breath, or dyspnea on exertion. Denies drug allergies. Denies any headache, fever, URI, sore throat, chest pain, palpitations, syncope, cough, shortness of breath, wheeze, dyspnea, abdominal pain, nausea/vomiting/diarrhea, urinary retention, dysuria, hematuria, loss of c ontrol of bowel or bladder, numbness/tingling, saddle anesthesia, muscle paralysis/weakness. Denies any prolonged immobilization, distance travel, recent surgery/trauma, personal cancer history, hormone use, smoking, or previous DVT/PE. - Related Data Allergies/Adverse Reactions: No Known Allergies Allergy (Verified 11/01/18 10:40) Past Medical History - Social History Smoking Status: Former Smoker Chew tobacco use (# tins/day): No Frequency of alcohol use: None Drug Abuse: None Family History: Reviewed & Not Pertinent Patient has suicidal ideation: No Patient has homicidal ideation: No - Past Medical History Cardiac Medical History: Reports: Hx Hypertension - Not currently treated Denies: Hx Congestive Heart Failure, Hx Heart Attack Pulmonary Medical History: Reports: Hx Pneumonia Denies: Hx Asthma, Hx Bronchitis, Hx COPD, Hx Tuberculosis Neurological Medical History: Denies: Hx Seizures Endocrine Medical History: Denies: Hx Diabetes Mellitus Type 1, Hx Diabetes Mellitus Type 2 Renal/ Medical History: Denies: Hx End Stage Renal Disease, Hx Kidney Stones, Hx Peritoneal Dialysis GI Medical History: Denies: Hx Cirrhosis, Hx Gastroesophageal Reflux Disease, Hx Ulcer Musculoskeletal Medical History: Reports Hx Arthritis - feet, Denies Hx Multiple Sclerosis Skin Medical History: Reports Hx Cellulitis - LEFT LEG MAY 2011. Psychiatric Medical History: Reports: Hx Depression Denies: Hx Bipolar Disorder, Hx Schizophrenia Past Surgical History: Reports: Hx Hysterectomy - Immunizations Hx Diphtheria, Pertussis, Tetanus Vaccination: Yes - unknown Hx Pneumococcal Vaccination: 05/22/14 Review of Systems - Review of Systems -: Yes All other systems reviewed and negative Physical Exam - Vital signs Vitals: Temp Pulse Resp BP Pulse Ox 97.8 F 89 18 141/94 H 95 11/01/18 10:58 11/01/18 10:58 11/01/18 10:58 11/01/18 10:58 11/01/18 10:58 - Notes Notes: PHYSICAL EXAMINATION: GENERAL: Well-appearing, well-nourished and in no acute distress. NECK: Normal range of motion, supple without lymphadenopathy LUNGS: Breath sounds clear to auscultation bilaterally and equal. No wheezes rales or rhonchi. HEART: Regular rate and rhythm without murmurs, rubs, gallops. ABDOMEN: Soft, nontender, nondistended abdomen. No guarding, no rebound. Normal bowel sounds present. No CVA tenderness bilaterally. Musculoskeletal: FROM to passive/active. Strength 5+/5. James neg. No asymmetry to LE's. Extremities: 1+ pitting edema b/l. Peripheral pulses 2+. Capillary refill less than 3 seconds. NEUROLOGICAL: Normal speech, normal gait. PSYCH: Normal mood, normal affect. SKIN: there is chronic appearing edema and LE skin color darkening noted. On the left anterior lower leg there is very mild, faint, erythema noted with minimal warmth and no fluctuance or tenderness. No streaks or discharge. Course - Re-evaluation Re-evalutation: 11/01/18 Pt's CMP/BNP hemolyzed, pt does not want another draw at this time. She has no cardiopulmonary symptoms or any high DVT risk factors. Patient is an afebrile, well-hydrated, 62-year-old female who presents the emergency department with symmetric bilateral lower extremity edema which is chronic in nature with very mild anterior erythema noted with no significant tenderness. Vitals are acceptable without significant tachycardia, tachypnea, or hypoxia. PE is otherwise unremarkable. Venous Doppler was unremarkable. Patient has no chest pain, dyspnea on exertion, or shortness of breath. Her CBC did not show any significant leukocytosis. Coags unremarkable. Lungs are clear to auscultation bilaterally. No further labs or imaging warranted. Low suspicion for any DVT, sepsis, meningitis, severe dehydration, respiratory compromise, CHF exacerbation, renal failure, or other systemic emergent condition at this time. Patient is aware that condition can change from initial presentation and she needs to monitor symptoms closely and seek medical attention with any acute changes. I will sent home with a prescription for Augmentin and she was discharged on this when she was hospitalized in the past which worked well for her. Recheck with your PCM in 2-3 days. Return to the ED with any other worsening/concerning symptoms reviewed. Patient is in agreement. - Vital Signs Vital signs: Temp Pulse Resp BP Pulse Ox 97.8 F 89 18 141/94 H 95 11/01/18 10:58 11/01/18 10:58 11/01/18 10:58 11/01/18 10:58 11/01/18 10:58 - Laboratory Result Diagrams: 11/01/18 11:50 11/01/18 11:50 Discharge - Discharge Clinical Impression: Cellulitis of left lower extremity Condition: Stable Disposition: HOME, SELF-CARE Instructions: Cellulitis ([facility]) Additional Instructions: Keep legs elevated Keep the skin clean Wash with soap and water Tylenol/ibuprofen if needed Triple antibiotic ointment daily if needed Take medication as directed Monitor for any worsening symptoms Recheck with your PCM in 2-3 days Return to the ED with any worsening symptoms and/or development of fever, headache, chest pain, palpitations, syncope, shortness of breath, trouble breathing, abdominal pain, n/v/d, abscess, purulent discharge, red streaks, worsening swelling, or other worsening symptoms that are concerning to you. Prescriptions: Amox Tr/Potassium Clavulanate [Augmentin 875-125 Tablet] 1 tab PO BID 10 Days #20 tablet Forms: Elevated Blood Pressure Referrals: MARCIAL THAYER MD [Primary Care Provider] - Follow up as needed
[2018-11-01 15:09] VITALS: BP 154/84
--- NOTE | 2018-11-01 16:45 | XCELERA REPORT ---
[address] [place] [facility] [address] Lower Extremity Venous Evaluation Procedure: Color flow and duplex imaging of the veins of the left lower extremity as well as the right Common Femoral vein. Right Sided Venous Evaluation The right common femoral vein is fully compressible. Spontaneous and phasic flow is present in the right common femoral vein. Left Sided Venous Evaluation Normal vessel filling wall to wall, compression and augmentation as well as Colour flow down to the infrageniculate veins. Interpretation Summary No duplex evidence of DVT or obstruction in the left lower extremity nor in the right Common Femoral vein. Name: RAMYA CALLAHAN Age: 62 yrs Gender: Female : 1955 Patient Status: Preadmit Patient Location: ER Study Date: 11/01/2018 01:30 PM Reason For Study: LLE swelling Ordering Physician: TERESA HAMILTON Performed By: Diya Alas : TERESA HAMILTON > Edgardo Saavedra
== END 2018-11-01 15:01 | disposition home or self-care (01) ==
LOC: ER 10:37
DX: L03.116 Cellulitis of left lower limb (principal); R60.0 Localized edema; I10 Essential (primary) hypertension; Z87.891 Personal history of nicotine dependence
CPT/HCPCS: 36415; 85025; 85610; 85730; 93971; 99284

== ENCOUNTER 2019-09-18 06:14 | Emergency (ER) | payer MEDICARE ==
[2019-09-18] MEDS ORDERED: ACETAMINOPHEN 325 MG TABLET PO ONE (07:21)
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
[2019-09-18] MEDS ORDERED: NORMAL SALINE 1000 ML 1,000 ML IV ONE (10:22)
[2019-09-18 11:18] LABS: ABSOLUTE BASOPHILS # (AUTO) 0.1 10^3/uL (0.0-0.2); ABSOLUTE EOSINOPHILS # (AUTO) 0.1 10^3/uL (0.0-0.6); ABSOLUTE LYMPHOCYTES (AUTO) 1.7 10^3/uL (0.5-4.7); ABSOLUTE MONOCYTES (AUTO) 1.1 10^3/uL (0.1-1.4); ABSOLUTE NEUT (AUTO) 8.2 10^3/uL (1.7-8.2); BASOPHILS % (AUTO) 0.6 % (0-2); EOSINOPHILS % (AUTO) 0.6 % (0-6); HEMATOCRIT 45.3 % (36.0-47.0); HEMOGLOBIN 15.1 g/dL (12.0-15.5); LYMPHOCYTES % (AUTO) 15.3 % (13-45); MEAN CORPUSCULAR HEMOGLOBIN 30.9 pg (27.0-33.4); MEAN CORPUSCULAR HGB CONC 33.4 g/dL (32.0-36.0); MEAN CORPUSCULAR VOLUME 93 fl (80-97); MONOCYTES % (AUTO) 9.5 % (3-13); PLATELET COUNT 290 10^3/uL (150-450); RED CELL DISTRIBUTION WIDTH 14.9 % (11.5-14.0); TOTAL CELLS COUNTED % (AUTO) 100 %; WHITE BLOOD COUNT 11.1 10^3/uL (4.0-10.5)
[2019-09-18 11:37] LABS: ALBUMIN 4.3 g/dL (3.5-5.0); ALKALINE PHOSPHATASE 96 U/L (38-126); ANION GAP 9 (5-19); ASPARTATE AMINO TRANSFERASE 31 U/L (14-36); BILIRUBIN,TOTAL 0.8 mg/dL (0.2-1.3); BLOOD UREA NITROGEN 24 mg/dL (7-20); CARBON DIOXIDE 32 mmol/L (22-30); CHLORIDE 99 mmol/L (98-107); GLUCOSE 111 mg/dL (75-110); POTASSIUM 4.1 mmol/L (3.6-5.0); TOTAL PROTEIN 8.1 g/dL (6.3-8.2)
[2019-09-18 11:38] LABS: ALCOHOL < 10 mg/dL (NONE DETECTED)
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
[2019-09-18 12:35] VITALS: BP 124/70
--- NOTE | 2019-09-19 14:26 | EKG REPORT ---
SEVERITY:- ABNORMAL ECG - ATRIAL FIBRILLATION, V-RATE 89-139 BORDERLINE T ABNORMALITIES, LATERAL LEADS BORDERLINE PROLONGED QT INTERVAL : Confirmed by: Jersey Cisneros 19-Sep-2019 14:25:10
--- NOTE | 2019-09-19 14:26 | EKG REPORT ---
SEVERITY:- ABNORMAL ECG - ATRIAL FIBRILLATION, V-RATE 80-146 VENTRICULAR PREMATURE COMPLEX BORDERLINE T WAVE ABNORMALITIES : Confirmed by: Jersey Cisneros 19-Sep-2019 14:25:17
== END 2019-09-18 12:43 | disposition home or self-care (01) ==
LOC: ER 06:14
DX: I48.91 Unspecified atrial fibrillation (principal); S80.02XA Contusion of left knee, initial encounter; S00.03XA Contusion of scalp, initial encounter; M25.561 Pain in right knee; R51 Headache; M79.642 Pain in left hand; Y04.8XXA Assault by other bodily force, initial encounter; Z87.891 Personal history of nicotine dependence; I10 Essential (primary) hypertension
CPT/HCPCS: 93005; 99284; 96360; 96361; 36415; 80307; 85025; 80053; 73130; 73564 ×2; 70450; 72125; 93010; L1830; A9270; J7030

== ENCOUNTER 2019-10-03 12:39 | Inpatient (IN) | payer MEDICARE ==
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
--- NOTE | 2019-10-03 14:47 | RADIOLOGY REPORT (SQ) ---
EXAM DESCRIPTION: CHEST SINGLE VIEW COMPLETED DATE/TIME: 10/03/2019 2:06 pm REASON FOR STUDY: sob COMPARISON: 06/07/2011 EXAM PARAMETERS: NUMBER OF VIEWS: One view. TECHNIQUE: Single frontal radiographic view of the chest acquired. RADIATION DOSE: NA LIMITATIONS: None. FINDINGS: LUNGS AND PLEURA: Patchy right basilar airspace disease with mild basilar effusion. Unrem arkable left hemithorax. MEDIASTINUM AND HILAR STRUCTURES: No masses. Contour normal. HEART AND VASCULAR STRUCTURES: Enlarged, stable. Central vascular congestion. BONES: No acute findings. HARDWARE: None in the chest. OTHER: No other significant finding. IMPRESSION: Patchy right basilar airspace disease compatible with pneumonia. Small right effusion. Stable large cardiac silhouette and central vascular congestion. TECHNICAL DOCUMENTATION: JOB ID: [id number] 2010 [employer]- All Rights Reserved Reading location - IP/workstation name: [email or web address]
[2019-10-03 15:06] LABS: ABSOLUTE BASOPHILS # (AUTO) 0.1 10^3/uL (0.0-0.2); ABSOLUTE MONOCYTES (AUTO) 0.8 10^3/uL (0.1-1.4); ABSOLUTE NEUT (AUTO) 7.1 10^3/uL (1.7-8.2); EOSINOPHILS % (AUTO) 0.5 % (0-6); HEMATOCRIT 42.4 % (36.0-47.0); HEMOGLOBIN 14.3 g/dL (12.0-15.5); LYMPHOCYTES % (AUTO) 10.6 % (13-45); MEAN CORPUSCULAR HGB CONC 33.7 g/dL (32.0-36.0); MEAN CORPUSCULAR VOLUME 92 fl (80-97); MONOCYTES % (AUTO) 8.9 % (3-13); PLATELET COUNT 243 10^3/uL (150-450); RED CELL DISTRIBUTION WIDTH 15.2 % (11.5-14.0); TOTAL CELLS COUNTED % (AUTO) 100 %
[2019-10-03 15:23] LABS: ALBUMIN 3.6 g/dL (3.5-5.0); ALKALINE PHOSPHATASE 84 U/L (38-126); ANION GAP 8 (5-19); ASPARTATE AMINO TRANSFERASE 45 U/L (14-36); BILIRUBIN,DIRECT 0.2 mg/dL (0.0-0.4); BILIRUBIN,TOTAL 0.7 mg/dL (0.2-1.3); BLOOD UREA NITROGEN 23 mg/dL (7-20); CALCIUM 9.2 mg/dL (8.4-10.2); CARBON DIOXIDE 31 mmol/L (22-30); CHLORIDE 102 mmol/L (98-107); GLUCOSE 100 mg/dL (75-110); POTASSIUM 4.4 mmol/L (3.6-5.0); TOTAL PROTEIN 7.3 g/dL (6.3-8.2)
[2019-10-03 15:34] LABS: NT PRO BNP 2810 pg/mL (<125)
[2019-10-03 15:50] LABS: TROPONIN I < 0.012 ng/mL
[2019-10-03] MEDS ORDERED: FUROSEMIDE INJ/PF 20 MG/2 ML SDV IV ONE (15:50)
[2019-10-03] MEDS ORDERED: DILTIAZEM HCL INJ 25 MG/5 ML VIAL IV ONE ×2 (15:51→17:44)
[2019-10-03] MEDS ORDERED: CEFTRIAXONE INJ 1000 MG VIAL IV ONE (17:37)
[2019-10-03] MEDS ORDERED: AZITHROMYCIN INJ 500 MG VIAL IV ONE (17:38)
[2019-10-03] MEDS ORDERED: DILTIAZEM HCL/D5W 125 MG/125 ML RTUINJ IV PRN ×2 (17:46→18:05)
--- NOTE | 2019-10-03 17:52 | ER Document Report ---
ED General - General Chief Complaint: Shortness Of Breath Stated Complaint: FEET SWELLING,SHORT OF BREATH Time Seen by Provider: 10/03/19 13:28 Primary Care Provider: KAIN SANDY MD [Primary Care Provider] - Follow up as needed Mode of Arrival: Wheelchair TRAVEL OUTSIDE OF THE [place] IN LAST 30 DAYS: No - HPI Notes: Ms. Quinn is a 63-year-old female heavy cigarette smoker with history of hypertension and chronic atrial fib not currently anticoagulated now presenting with increasing dyspnea upon exertion as well as lower extremity edema worsening over the past 3 weeks. Patient is previously been seen at [facility] and she is taking a combination diuretic hydrochlorothiazide/triamterene and metoprolol. She says she has been fully compliant with his medications. She denies chest pain. She denies fever, chills or sputum production. She was noted to have an O2 saturation of 88% on room air upon arrival here. - Related Data Allergies/Adverse Reactions: No Known Allergies Allergy (Verified 10/03/19 14:41) Past Medical History - General Information source: Patient - Social History Smoking Status: Current Every Day Smoker Frequency of alcohol use: None Drug Abuse: None Lives with: Family Family History: Reviewed & Not Pertinent Patient has suicidal ideation: No Patient has homicidal ideation: No - Past Medical History Cardiac Medical History: Reports: Hx Atrial Fibrillation, Hx Hypertension Denies: Hx Congestive Heart Failure, Hx Heart Attack Pulmonary Medical History: Reports: Hx Pneumonia Denies: Hx Asthma, Hx Bronchitis, Hx COPD, Hx Tuberculosis Neurological Medical History: Denies: Hx Seizures, Hx Parkinson's Disease Endocrine Medical History: Denies: Hx Diabetes Mellitus Type 1, Hx Diabetes Mellitus Type 2 Renal/ Medical History: Denies: Hx End Stage Renal Disease, Hx Kidney Stones, Hx Peritoneal Dialysis GI Medical History: Denies: Hx Cirrhosis, Hx Gastroesophageal Reflux Disease, Hx Ulcer Musculoskeletal Medical History: Reports Hx Arthritis - feet, Denies Hx Multiple Sclerosis Skin Medical History: Reports Hx Cellulitis - LEFT LEG MAY 2011. Psychiatric Medical History: Reports: Hx Depression Denies: Hx Bipolar Disorder, Hx Schizophrenia Past Surgical History: Reports: Hx Hysterectomy - Immunizations Hx Diphtheria, Pertussis, Tetanus Vaccination: Yes - unknown Hx Pneumococcal Vaccination: 05/22/14 Review of Systems - Review of Systems Notes: Constitutional: Negative for fever. HENT: Negative for sore throat. Eyes: Negative for visual changes. Cardiovascular: As per HPI. Respiratory: As per HPI. Gastrointestinal: Negative for abdominal pain, vomiting or diarrhea. Genitourinary: Negative for dysuria. Musculoskeletal: Negative for back pain. Skin: Negative for rash. Neurological: Negative for headaches, weakness or numbness. 10 point ROS negative except as marked above and in HPI. Physical Exam - Vital signs Vitals: Temp Pulse Resp BP Pulse Ox 97.6 F 121 H 36 H 156/126 H 87 L 10/03/19 13:21 10/03/19 13:21 10/03/19 13:21 10/03/19 13:21 10/03/19 13:21 - Notes Notes: GENERAL: Well-developed well-nourished appearing mildly dyspneic. SKIN: Good turgor no rashes. HEAD: Normocephalic atraumatic. EYES: PERRLA. EOMI. Conjunctivae and sclerae clear. EARS: CANALS AND TMS CLEAR. NOSE: CLEAR. MOUTH: Moist mucosa. Good dentition. No stridor or edema. No drooling. NECK: Supple. No masses or thyromegaly. No adenopathy. Carotids 2+ without bruits. Positive JVD at 30 degrees elevation bilaterally. BACK: Symmetrical without tenderness. CHEST: Scattered coarse rhonchi and faint wheezes bilaterally with diminished breath sounds right base. HEART: Tachycardic irregularly irregular rhythm. No murmur gallop or rub. ABDOMEN: Soft nontender without masses, organomegaly or rebound. Bowel sounds normally active. No bruits. GENITALIA: Deferred. EXTREMITIES: 3+ bilateral pretibial edema. No calf tenderness. Cap refill less than 1.5 seconds. Dorsalis pedis and posterior tibial pulses 3+ and symmetrical. NEUROLOGICAL: GCS 15. Alert and oriented x3. Fluent speech. Cranial nerves II through XII intact. Sensorimotor and cerebellar normal. Normal tone. PSYCHIATRIC: Appropriate affect. 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 Supplemental O2 2 L with saturation at 98%. IV Lasix administered. IV diltiazem drip and bolus. Initial troponin is normal BNP is elevated around 2800. EKG shows uncontrolled atrial fibrillation with no acute ST changes. Patient has frequent PVCs. She will require admission for further management. - Vital Signs Vital signs: Temp Pulse Resp BP Pulse Ox 97.6 F 121 H 21 H 156/126 H 98 10/03/19 13:21 10/03/19 13:21 10/03/19 15:03 10/03/19 13:21 10/03/19 15:03 - Laboratory Result Diagrams: 10/03/19 14:50 10/03/19 14:50 Laboratory results interpreted by me: 10/03/19 10/03/19 10/03/19 14:50 14:50 14:50 RDW 15.2 H Lymph % (Auto) 10.6 L Seg Neutrophils % 79.0 H Carbon Dioxide 31 H BUN 23 H AST 45 H NT-Pro-B Natriuret Pep 2810 H Discharge - Discharge Clinical Impression: Acute decompensated heart failure, Atrial fibrillation with rapid ventricular response Condition: Fair Disposition: ADMITTED INPATIENT Admitting Provider: Liv (Hospitalist) Unit Admitted: IMCU Referrals: KAIN SANDY MD [Primary Care Provider] - Follow up as needed
[2019-10-03] MEDS ORDERED: ONDANSETRON HCL INJ/PF 4 MG/2 ML SDV IV PRN (18:05)
[2019-10-03] MEDS ORDERED: MAG HYDROX/AL HYDROX/SIMETH SUSP 30 ML UDCUP PO PRN (18:05)
[2019-10-03] MEDS ORDERED: TRAMADOL HCL 50 MG TABLET PO PRN (18:51)
[2019-10-03] MEDS ORDERED: GUAIFENESIN SYRP 200 MG/10 ML UDC PO PRN (18:51)
--- NOTE | 2019-10-03 19:01 | PDOC H&P ---
History of Present Illness Admission Date/PCP: 10/03/19 17:59 KAIN SANDY MD Patient complains of: Shortness of breath History of Present Illness: RAMYA CALLAHAN is a 63 year old female with a past medical history of hypertension, atrial fibrillation, CHF, pneumonia, obesity, chronic lymphedema with recurrent left lower extremity cellulitis, depression who presented to the emergency department today with a complaint of 3 days of progressively worsening shortness of breath, cough, orthopnea, palpitations, and peripheral edema. Evaluation in the emergency department revealed the patient was in atrial fibrillation RVR with a heart rate initially in the 130s to 140s, tachypnea, and hypoxia on room air. Laboratory evaluation revealed benign CBC, mildly elevated bicarb, negative troponins, BNP elevated 2800 (no prior labs on file), and chest x-ray suggestive of a right lower lobe pneumonia. Patient was provided IV fluid boluses, Rocephin and azithromycin. Rate control was briefly achieved through diltiazem push. She was then referred to the hospitalist service for admission management of the above-stated complaints findings. Past Medical History Cardiac Medical History: Reports: Atrial Fibrillation, Hyperlipidema, Hypertension Denies: Congestive Heart Failure, Myocardial Infarction Pulmonary Medical History: Reports: Pneumonia Denies: Asthma, Chronic Obstructive Pulmonary Disease (COPD) Neurological Medical History: Denies: Ischemic CVA, Seizures Endocrine Medical History: Reports: Obesity Denies: Diabetes Mellitus Type 1, Diabetes Mellitus Type 2, Hypothyroidism Renal/ Medical History: Denies: Chronic Kidney Disease Malignancy Medical History: Reports: None GI Medical History: Denies: Cirrhosis, Gastroesophageal Reflux Disease Musculoskeltal Medical History: Reports: Arthritis - feet Psychiatric Medical History: Reports: Depression Denies: Bipolar Disorder Hematology: Denies: Anemia, Bleeding Tendencies Past Surgical History Past Surgical History: Reports: Section, Hysterectomy Social History Information Source: Patient Lives with: Family Smoking Status: Former Smoker Frequency of Alcohol Use: None Hx Recreational Drug Use: No Drugs: None Hx Prescription Drug Abuse: No - Advance Directive Resuscitation Status: Full Code Family History Family History: Reviewed & Not Pertinent Parental Family History Reviewed: Yes Children Family History Reviewed: Yes Sibling(s) Family History Reviewed.: Yes Medication/Allergy Allergies/Adverse Reactions: No Known Allergies Allergy (Verified 10/03/19 14:41) Review of Systems Constitutional: PRESENT: fatigue. ABSENT: chills, fever(s), headache(s), weight gain, weight loss Eyes: ABSENT: visual disturbances Ears: ABSENT: hearing changes Cardiovascular: PRESENT: dyspnea on exertion, edema, orthropnea, palpitations. ABSENT: chest pain Respiratory: PRESENT: cough, dyspnea, sputum. ABSENT: hemoptysis Gastrointestinal: ABSENT: abdominal pain, constipation, diarrhea, hematemesis, hematochezia, nausea, vomiting Genitourinary: ABSENT: dysuria, hematuria Musculoskeletal: ABSENT: joint swelling Integumentary: ABSENT: rash, wounds Neurological: ABSENT: abnormal gait, abnormal speech, confusion, dizziness, focal weakness, syncope Psychiatric: ABSENT: anxiety, depression, homidical ideation, suicidal ideation Endocrine: ABSENT: cold intolerance, heat intolerance, polydipsia, polyuria Hematologic/Lymphatic: ABSENT: easy bleeding, easy bruising Physical Exam Vital Signs: Temp Pulse Resp BP Pulse Ox 97.6 F 121 H 21 H 156/126 H 98 10/03/19 13:21 10/03/19 13:21 10/03/19 15:03 10/03/19 13:21 10/03/19 15:03 Intake & Output 10/02/19 10/03/19 10/04/19 06:59 06:59 06:59 Weight 125 kg General appearance: PRESENT: no acute distress, cooperative, disheveled, morbidly obese, well-developed, well-nourished Head exam: PRESENT: atraumatic, normocephalic Eye exam: PRESENT: conjunctiva pink, EOMI, PERRLA. ABSENT: scleral icterus Ear exam: PRESENT: normal external ear exam Mouth exam: PRESENT: moist, tongue midline Teeth exam: PRESENT: poor dentation Respiratory exam: PRESENT: prolonged expiratory phas, rhonchi, tachypnea, other - Supplemental oxygen by nasal cannula. ABSENT: rales, wheezes Cardiovascular exam: PRESENT: irregular rhythm, +S1, +S2, tachycardia. ABSENT: diastolic murmur, rubs, systolic murmur Pulses: PRESENT: +1 pedal pulses bilateral Vascular exam: PRESENT: normal capillary refill GI/Abdominal exam: PRESENT: normal bowel sounds, soft. ABSENT: distended, guarding, mass, organolmegaly, rebound, tenderness Rectal exam: PRESENT: deferred Extremities exam: PRESENT: full ROM, +2 edema - Pitting edema bilaterally. ABSENT: calf tenderness, clubbing Musculoskeletal exam: PRESENT: ambulatory Neurological exam: PRESENT: alert, awake, oriented to person, oriented to place, oriented to time, oriented to situation, CN II-XII grossly intact. ABSENT: motor sensory deficit Psychiatric exam: PRESENT: anxious, appropriate affect, normal mood. ABSENT: homicidal ideation, suicidal ideation Skin exam: PRESENT: dry, intact, warm. ABSENT: cyanosis, rash Results Laboratory Results: 10/03/19 14:50 10/03/19 14:50 10/03/19 10/03/19 14:50 14:50 WBC 9.0 RBC 4.60 Hgb 14.3 Hct 42.4 MCV 92 MCH 31.0 MCHC 33.7 RDW 15.2 H Plt Count 243 Seg Neutrophils % 79.0 H Sodium 140.9 Potassium 4.4 Chloride 102 Carbon Dioxide 31 H Anion Gap 8 BUN 23 H Creatinine 0.58 Est GFR ( Amer) > 60 Glucose 100 Calcium 9.2 Total Bilirubin 0.7 AST 45 H Alkaline Phosphatase 84 Total Protein 7.3 Albumin 3.6 10/03/19 10/03/19 14:50 16:55 Troponin I < 0.012 < 0.012 NT-Pro-B Natriuret Pep 2810 H Impressions: Chest X-Ray 10/03/19 13:33 IMPRESSION: Patchy right basilar airspace disease compatible with pneumonia. Small right effusion. Stable large cardiac silhouette and central vascular congestion. Assessment and Plan - Diagnosis (1) Atrial fibrillation with rapid ventricular response Is this a current diagnosis for this admission?: Yes Plan: Patient with history of atrial fibrillation. She does not know her home medication regiment. It is unclear whether or not she is chronically anticoagulated. Rate control briefly obtained with diltiazem push; however, patient's heart rate rapidly returned to 120. Likely exacerbated by right lower lobe pneumonia. TSH pending. Patient is admitted to [facility] on continuous cardiac telemetry. She is placed on IV diltiazem drip; titrate per protocol. Full dose Lovenox. Daily aspirin therapy. We will resume home medication regiment as appropriate once reconciled. (2) Right lower lobe pneumonia Qualifiers: Pneumonia type: due to unspecified organism Qualified Code(s): J18.9 - Pneumonia, unspecified organism Is this a current diagnosis for this admission?: Yes Plan: Community-acquired pneumonia. Patient is afebrile with normal WBCs, though with significant right lower infiltrate on chest x-ray and increased dyspnea with sputum production. Blood cultures pending. Sputum cultures pending. Patient is empirically placed on IV Rocephin and azithromycin. Supplemental oxygen as needed. As needed nebulizer treatments. Mucinex twice daily. Robitussin as needed. Encourage pulmonary toilet with incentive spirometer, flutter valve, and ambulation. (3) CHF exacerbation Qualifiers: Heart failure type: unspecified Qualified Code(s): I50.9 - Heart failure, unspecified Is this a current diagnosis for this admission?: Yes Plan: Secondary to right lower lobe pneumonia and atrial fibrillation RVR. proBNP 2800 Echocardiogram pending. Continue diuresis with furosemide. Cardiac diet. Strict I&O's. Daily weights. (4) Acute respiratory failure with hypoxia Is this a current diagnosis for this admission?: Yes Plan: Secondary to #1-3. Evaluation and management as above. (5) Morbid obesity with BMI of 40.0-44.9, adult Is this a current diagnosis for this admission?: Yes Plan: BMI 43.2. Lifestyle modification dietary discretion advised. - Time Time Spent with patient: 35 or more minutes Medications reviewed and adjusted accordingly: Yes Anticipated discharge: Home with Homehealth - Inpatient Certification Based on my medical assessment, after consideration of the patient's comorbidities, presenting symptoms, or acuity I expect that the services needed warrant INPATIENT care.: Yes I certify that my determination is in accordance with my understanding of Medicare's requirements for reasonable and necessary INPATIENT services [42 CFR 412.3e].: Yes Medical Necessity: Significant Comorbidiites Make Outpatient Treatment Too Risky, Need Close Monitoring Due to Risk of Patient Decompensation, Need For IV Fluids, Need For Continuous Telemetry Monitoring, Need for Nebulizer Therapy and Monitoring of Response, Need for IV Antibiotics, Risk of Complication if Not Cared For in Hospital
--- NOTE | 2019-10-03 20:14 | EKG REPORT ---
SEVERITY:- ABNORMAL ECG - ATRIAL FIBRILLATION, V-RATE 101-169 CONSIDER ANTEROSEPTAL INFARCT : Confirmed by: Peter Connor MD 03-Oct-2019 20:13:17
[2019-10-03] MEDS: HEPARIN SOD (PORCINE) 5,000 UNIT/ML 1 ML VIAL SUBCUT SCH (22:07)
[2019-10-03] MEDS: FUROSEMIDE INJ/PF 20 MG/2 ML SDV IV SCH (22:07)
[2019-10-03] MEDS: ENOXAPARIN SODIUM INJ 150 MG/1 ML DISP.SYRIN SUBCUT SCH (22:08)
[2019-10-03] MEDS: FAMOTIDINE 20 MG TABLET PO SCH (22:09)
[2019-10-03] MEDS: GUAIFENESIN 600 MG TABLET.SA PO SCH (22:09)
[2019-10-04] MEDS: ACETAMINOPHEN 325 MG TABLET PO PRN ×2 (03:48→20:17)
[2019-10-04] MEDS ORDERED: INFLUENZA QUAD (6MOS+) 2019-20 VAC 0.5 ML SYR IM ONE (04:11)
[2019-10-04 06:32] LABS: HEMATOCRIT 40.1 % (36.0-47.0); HEMOGLOBIN 13.3 g/dL (12.0-15.5); MEAN CORPUSCULAR HEMOGLOBIN 30.7 pg (27.0-33.4); MEAN CORPUSCULAR HGB CONC 33.2 g/dL (32.0-36.0); MEAN CORPUSCULAR VOLUME 93 fl (80-97); PLATELET COUNT 236 10^3/uL (150-450); RED BLOOD COUNT 4.33 10^6/uL (3.72-5.28); RED CELL DISTRIBUTION WIDTH 15.1 % (11.5-14.0); WHITE BLOOD COUNT 9.7 10^3/uL (4.0-10.5)
[2019-10-04 06:48] LABS: ANION GAP 6 (5-19); BLOOD UREA NITROGEN 23 mg/dL (7-20); CALCIUM 8.8 mg/dL (8.4-10.2); CARBON DIOXIDE 37 mmol/L (22-30); CHLORIDE 100 mmol/L (98-107); GLUCOSE 88 mg/dL (75-110); POTASSIUM 3.7 mmol/L (3.6-5.0)
[2019-10-04] MEDS: HEPARIN SOD (PORCINE) 5,000 UNIT/ML 1 ML VIAL SUBCUT SCH (06:49)
[2019-10-04] MEDS ORDERED: CEFTRIAXONE 1 GM/D5W RTU 1 GM/50 ML RTUPB IV SCH (10:00)
[2019-10-04] MEDS: LEVALBUTEROL HCL NEB 1.25 MG/3 ML AMPUL NEB PRN (10:02)
[2019-10-04] MEDS: ASPIRIN 81 MG TABLET, CHEWABLE PO SCH (10:59)
[2019-10-04] MEDS: FAMOTIDINE 20 MG TABLET PO SCH ×2 (10:59→21:29)
[2019-10-04] MEDS: DOCUSATE SODIUM 100 MG CAPSULE PO SCH (10:59)
[2019-10-04] MEDS: GUAIFENESIN 600 MG TABLET.SA PO SCH ×2 (10:59→21:29)
[2019-10-04] MEDS: AZITHROMYCIN 500 MG in DEXTROSE 5%-WATER 250 ML IV SCH (11:00)
[2019-10-04] MEDS: FUROSEMIDE INJ/PF 20 MG/2 ML SDV IV SCH ×2 (11:01→21:27)
[2019-10-04] MEDS: ENOXAPARIN SODIUM INJ 150 MG/1 ML DISP.SYRIN SUBCUT SCH ×2 (11:08→21:28)
[2019-10-04] MEDS ORDERED: ONDANSETRON HCL INJ/PF 4 MG/2 ML SDV IV PRN (13:00)
[2019-10-04] MEDS: LEVALBUTEROL HCL NEB 1.25 MG/3 ML AMPUL NEB SCH (16:30)
[2019-10-04] MEDS: IPRATROPIUM BROMIDE 0.02% NEB 0.5 MG/2.5 ML AMPUL NEB SCH (16:30)
--- NOTE | 2019-10-04 16:37 | PDOC PROGRESS REPORT ---
Subjective Progress Note for:: 10/04/19 Subjective:: RAMYA CALLAHAN is a 63 year old female with a past medical history of hypertension, atrial fibrillation, CHF, pneumonia, obesity, chronic lymphedema with recurrent left lower extremity cellulitis, depression who was admitted to 1220 with atrial fibrillation RVR, CHF exacerbation, and a right lower lobe pneumonia. Patient was seen on morning rounds. She was found sitting up to the edge of the bed, comfortably, on supplemental oxygen via nasal cannula. She appears to be in better spirits today. She tells me that she is feeling slightly better with decreased shortness of breath and palpitations. She does continue to have a productive cough and fatigue. She reports anxiety regarding her atrial fibrillation diagnosis; reports that nursing discussed potential need for cardioversion. Did clarify with the patient that that is just 1 of many ways that atrial fibrillation is treated and is not necessary for her at this time. However, we did discuss that she will continue to be monitored on telemetry and should her heart rate become uncontrolled or unsafe, then we may need to explore that option. She was reassured that at this time I felt that we would be able to control her heart rate with Cardizem. She denies fever, chills, orthopnea, abdominal pain, nausea vomiting and diarrhea. She reports good appetite. Overall she is feeling better today. She has no other questions or concerns at this time. No concerns per nursing. Reason For Visit: ACUTE RESPIRATORY FAILURE WITH HYPOXIA,AFID W/RVR, Physical Exam Vital Signs: Temp Pulse Resp BP Pulse Ox 98.4 F 104 H 20 139/90 H 98 10/04/19 14:47 10/04/19 14:47 10/04/19 14:47 10/04/19 14:47 10/04/19 14:47 Intake & Output 10/03/19 10/04/19 10/05/19 06:59 06:59 06:59 Intake Total 240 550 Output Total 700 400 Balance -460 150 Weight 122 kg General appearance: PRESENT: no acute distress, cooperative, morbidly obese, well-developed, well-nourished Head exam: PRESENT: atraumatic, normocephalic Eye exam: PRESENT: conjunctiva pink, EOMI, PERRLA. ABSENT: scleral icterus Mouth exam: PRESENT: moist, tongue midline Teeth exam: PRESENT: poor dentation Respiratory exam: PRESENT: rhonchi, symmetrical, unlabored, wheezes, other - Supplemental oxygen via nasal cannula. ABSENT: rales Cardiovascular exam: PRESENT: irregular rhythm, +S1, +S2, tachycardia - HR 90- 110 at rest. ABSENT: diastolic murmur, rubs, systolic murmur Vascular exam: PRESENT: normal capillary refill GI/Abdominal exam: PRESENT: normal bowel sounds, soft, other - rotund. ABSENT: distended, guarding, mass, organolmegaly, rebound, tenderness Extremities exam: PRESENT: full ROM, pedal edema, +2 edema - pitting BLE. ABSENT: calf tenderness, clubbing Musculoskeletal exam: PRESENT: ambulatory Neurological exam: PRESENT: alert, awake, oriented to person, oriented to place, oriented to time, oriented to situation, CN II-XII grossly intact. ABSENT: motor sensory deficit Psychiatric exam: PRESENT: anxious, appropriate affect, normal mood. ABSENT: homicidal ideation, suicidal ideation Skin exam: PRESENT: dry, intact, warm. ABSENT: cyanosis, rash Results Laboratory Results: 10/04/19 05:36 10/04/19 05:36 10/03/19 10/04/19 10/04/19 16:55 05:36 05:36 WBC 9.7 RBC 4.33 Hgb 13.3 Hct 40.1 MCV 93 MCH 30.7 MCHC 33.2 RDW 15.1 H Plt Count 236 Sodium 142.9 Potassium 3.7 Chloride 100 Carbon Dioxide 37 H Anion Gap 6 BUN 23 H Creatinine 1.13 Est GFR ( Amer) 58 L Glucose 88 Calcium 8.8 TSH 1.39 10/03/19 10/03/19 14:50 16:55 Troponin I < 0.012 < 0.012 NT-Pro-B Natriuret Pep 2810 H Impressions: Chest X-Ray 10/03/19 13:33 IMPRESSION: Patchy right basilar airspace disease compatible with pneumonia. Small right effusion. Stable large cardiac silhouette and central vascular congestion. Assessment and Plan - Diagnosis (1) Atrial fibrillation with rapid ventricular response Is this a current diagnosis for this admission?: Yes Plan: Patient with history of atrial fibrillation. She does not know her home medication regiment. It is unclear whether or not she is chronically anticoagulated. Rate control briefly obtained with diltiazem push; however, patient's heart rate rapidly returned to 120. Likely exacerbated by right lower lobe pneumonia. TSH pending. Patient is admitted to [facility] on continuous cardiac telemetry. She is placed on IV diltiazem drip; titrate per protocol. Have resumed home dose Toprolol. Full dose Lovenox. Patient is ensured; will plan to transition to Eliquis at discharge. Daily aspirin therapy. Discussed with Dr. Burk; patient may be a candidate for cardioversion toward end of admission or at follow up once PNA is appropriately treated. Ensure patient is d/c'd on anticoagulant. (2) Right lower lobe pneumonia Qualifiers: Pneumonia type: due to unspecified organism Qualified Code(s): J18.9 - Pneumonia, unspecified organism Is this a current diagnosis for this admission?: Yes Plan: Community-acquired pneumonia. Patient is afebrile with normal WBCs, though with significant right lower infiltrate on chest x-ray and increased dyspnea with sputum production. Blood cultures pending. Sputum cultures pending. Patient is empirically placed on IV Rocephin and azithromycin. Supplemental oxygen as needed. As needed nebulizer treatments. Mucinex twice daily. Robitussin as needed. Encourage pulmonary toilet with incentive spirometer, flutter valve, and ambulation. (3) CHF exacerbation Qualifiers: Heart failure type: unspecified Qualified Code(s): I50.9 - Heart failure, unspecified Is this a current diagnosis for this admission?: Yes Plan: Secondary to right lower lobe pneumonia and atrial fibrillation RVR. proBNP 2800 Echocardiogram pending. Continue diuresis with furosemide. Cardiac diet. Strict I&O's. Daily weights. (4) Acute respiratory failure with hypoxia Is this a current diagnosis for this admission?: Yes Plan: Secondary to #1-3. Evaluation and management as above. (5) Morbid obesity with BMI of 40.0-44.9, adult Is this a current diagnosis for this admission?: Yes Plan: BMI 43.2. Lifestyle modification dietary discretion advised. Patient educator is consulted. - Time Time Spent with patient: 35 or more minutes Medications reviewed and adjusted accordingly: Yes Anticipated discharge: Home with Homehealth Within: within 72 hours
[2019-10-04] MEDS: DILTIAZEM HCL 30 MG TABLET PO SCH ×2 (18:36→23:23)
[2019-10-05] MEDS: IPRATROPIUM BROMIDE 0.02% NEB 0.5 MG/2.5 ML AMPUL NEB SCH ×3 (00:28→16:28)
[2019-10-05] MEDS: LEVALBUTEROL HCL NEB 1.25 MG/3 ML AMPUL NEB SCH ×3 (00:28→16:27)
[2019-10-05 06:06] LABS: HEMATOCRIT 40.9 % (36.0-47.0); HEMOGLOBIN 13.5 g/dL (12.0-15.5); MEAN CORPUSCULAR HEMOGLOBIN 30.6 pg (27.0-33.4); MEAN CORPUSCULAR HGB CONC 32.9 g/dL (32.0-36.0); MEAN CORPUSCULAR VOLUME 93 fl (80-97); PLATELET COUNT 241 10^3/uL (150-450); RED BLOOD COUNT 4.41 10^6/uL (3.72-5.28); RED CELL DISTRIBUTION WIDTH 15.1 % (11.5-14.0); WHITE BLOOD COUNT 7.7 10^3/uL (4.0-10.5)
[2019-10-05 06:20] LABS: ANION GAP 5 (5-19); BLOOD UREA NITROGEN 21 mg/dL (7-20); CALCIUM 9.1 mg/dL (8.4-10.2); CARBON DIOXIDE 37 mmol/L (22-30); CHLORIDE 97 mmol/L (98-107); GLUCOSE 92 mg/dL (75-110)
[2019-10-05] MEDS: DILTIAZEM HCL 30 MG TABLET PO SCH (06:24)
[2019-10-05] MEDS ORDERED: DILTIAZEM HCL 120 MG CAP.SR.24H PO SCH (10:00)
[2019-10-05] MEDS ORDERED: FUROSEMIDE INJ/PF 20 MG/2 ML SDV IV SCH (10:00)
[2019-10-05] MEDS: METOPROLOL SUCCINATE 25 MG TAB.SR.24H PO SCH (10:20)
[2019-10-05] MEDS: ASPIRIN 81 MG TABLET, CHEWABLE PO SCH (10:21)
[2019-10-05] MEDS: DOCUSATE SODIUM 100 MG CAPSULE PO SCH (10:21)
[2019-10-05] MEDS: GUAIFENESIN 600 MG TABLET.SA PO SCH ×2 (10:21→21:37)
[2019-10-05] MEDS: FAMOTIDINE 20 MG TABLET PO SCH ×2 (10:21→21:37)
[2019-10-05] MEDS: FUROSEMIDE INJ/PF 40 MG/4 ML SDV IV SCH ×2 (10:23→21:37)
[2019-10-05] MEDS: ENOXAPARIN SODIUM INJ 150 MG/1 ML DISP.SYRIN SUBCUT SCH ×2 (10:24→21:37)
[2019-10-05] MEDS: AZITHROMYCIN 500 MG in DEXTROSE 5%-WATER 250 ML IV SCH (10:29)
--- NOTE | 2019-10-05 13:45 | PDOC PROGRESS REPORT ---
Subjective Progress Note for:: 10/05/19 Subjective:: RAMYA CALLAHAN is a 63 year old female with a past medical history of hypertension, atrial fibrillation, CHF, pneumonia, obesity, chronic lymphedema with recurrent left lower extremity cellulitis, depression who was admitted to 1220 with atrial fibrillation RVR, CHF exacerbation, and a right lower lobe pneumonia. Patient was seen on morning rounds. She was found sitting up to the edge of the bed, comfortably, on supplemental oxygen via nasal cannula. Continue to have dyspnea on minimal exertion, a productive cough and fatigue. She denies fever, chills, orthopnea, abdominal pain, nausea vomiting and diarrhea. She reports good appetite. Overall she is feeling better today. She has no other questions or concerns at this time. Nursing reports patient continues to become tachycardic (HR 100-120) when up to the bathroom. Reason For Visit: ACUTE RESPIRATORY FAILURE WITH HYPOXIA,AFID W/RVR, Physical Exam Vital Signs: Temp Pulse Resp BP Pulse Ox 97.3 F 98 18 126/87 H 96 10/05/19 08:03 10/05/19 09:08 10/05/19 09:08 10/05/19 08:03 10/05/19 09:08 Intake & Output 10/04/19 10/05/19 10/06/19 06:59 06:59 06:59 Intake Total 240 1945 Output Total 700 1500 Balance -460 445 Weight 122 kg 125.2 kg General appearance: PRESENT: no acute distress, cooperative, morbidly obese, well-developed, well-nourished Head exam: PRESENT: atraumatic, normocephalic Eye exam: PRESENT: conjunctiva pink, EOMI, PERRLA. ABSENT: scleral icterus Mouth exam: PRESENT: moist, tongue midline Teeth exam: PRESENT: poor dentation Respiratory exam: PRESENT: clear to auscultation heriberto, symmetrical, unlabored, other - Supplemental oxygen via NC. ABSENT: rales, rhonchi, wheezes Cardiovascular exam: PRESENT: irregular rhythm, +S1, +S2, tachycardia - intermittent. ABSENT: diastolic murmur, rubs, systolic murmur Pulses: PRESENT: normal dorsalis pedis pul Vascular exam: PRESENT: normal capillary refill Extremities exam: PRESENT: full ROM, +2 edema - pitting BLE; worse on left. ABSENT: calf tenderness, clubbing, pedal edema Musculoskeletal exam: PRESENT: ambulatory Neurological exam: PRESENT: alert, awake, oriented to person, oriented to place, oriented to time, oriented to situation, CN II-XII grossly intact. ABSENT: motor sensory deficit Psychiatric exam: PRESENT: appropriate affect, normal mood. ABSENT: homicidal ideation, suicidal ideation Skin exam: PRESENT: dry, intact, warm. ABSENT: cyanosis, rash Results Laboratory Results: 10/05/19 05:34 10/05/19 05:34 10/05/19 10/05/19 05:34 05:34 WBC 7.7 RBC 4.41 Hgb 13.5 Hct 40.9 MCV 93 MCH 30.6 MCHC 32.9 RDW 15.1 H Plt Count 241 Sodium 138.8 Potassium 4.0 Chloride 97 L Carbon Dioxide 37 H Anion Gap 5 BUN 21 H Creatinine 0.73 Est GFR ( Amer) > 60 Glucose 92 Calcium 9.1 10/03/19 10/03/19 14:50 16:55 Troponin I < 0.012 < 0.012 NT-Pro-B Natriuret Pep 2810 H Impressions: Chest X-Ray 10/03/19 13:33 IMPRESSION: Patchy right basilar airspace disease compatible with pneumonia. Small right effusion. Stable large cardiac silhouette and central vascular congestion. Assessment and Plan - Diagnosis (1) Atrial fibrillation with rapid ventricular response Is this a current diagnosis for this admission?: Yes Plan: Patient with history of atrial fibrillation. Improved rate control on p.o. diltiazem and home dose metoprolol. Likely exacerbated by right lower lobe pneumonia. TSH normal Patient is admitted to [facility] on continuous cardiac telemetry. Have transition to oral diltiazem. Continue home dose Toprolol. Full dose Lovenox. Patient is insured; will plan to transition to Eliquis at discharge. Daily aspirin therapy. Discussed with Dr. Burk; patient may be a candidate for cardioversion toward end of admission or at follow up once PNA is appropriately treated. Ensure patient is d/c'd on anticoagulant. (2) Right lower lobe pneumonia Qualifiers: Pneumonia type: due to unspecified organism Qualified Code(s): J18.9 - Pneumonia, unspecified organism Is this a current diagnosis for this admission?: Yes Plan: Community-acquired pneumonia. Patient is afebrile with normal WBCs, though with significant right lower infiltrate on chest x-ray and increased dyspnea with sputum production. Blood cultures negative at 24 hours Sputum cultures pending. Patient is empirically placed on IV Rocephin and azithromycin. Have discontinued IV Rocephin. Supplemental oxygen as needed. As needed nebulizer treatments. Mucinex twice daily. Robitussin as needed. Encourage pulmonary toilet with incentive spirometer, flutter valve, and ambulation. (3) CHF exacerbation Qualifiers: Heart failure type: unspecified Qualified Code(s): I50.9 - Heart failure, unspecified Is this a current diagnosis for this admission?: Yes Plan: Secondary to right lower lobe pneumonia and atrial fibrillation RVR. proBNP 2800 Echocardiogram pending. Continue diuresis with furosemide. Cardiac diet. Strict I&O's. Daily weights. (4) Acute respiratory failure with hypoxia Is this a current diagnosis for this admission?: Yes Plan: Secondary to #1-3. Evaluation and management as above. (5) Morbid obesity with BMI of 40.0-44.9, adult Is this a current diagnosis for this admission?: Yes Plan: BMI 43.2. Lifestyle modification dietary discretion advised. Patient educator is consulted. - Time Time Spent with patient: 25-34 minutes Medications reviewed and adjusted accordingly: Yes Anticipated discharge: Home with Homehealth Within: within 72 hours
--- NOTE | 2019-10-05 17:07 | RADIOLOGY REPORT (SQ) ---
EXAM DESCRIPTION: CHEST SINGLE VIEW COMPLETED DATE/TIME: 10/05/2019 4:39 pm REASON FOR STUDY: central line placement COMPARISON: 10/03/2019. FINDINGS: Single-view chest AP portable upright for central line placement. Right central line with tip to the cavoatrial junction. No pneumothorax. Cardiomegaly. Stable cardiomediastinal silhouette with ectatic uncoiled aorta. Improve right basilar aeration. TECHNICAL DOCUMENTATION: JOB ID: [id number] Reading location - IP/workstation name: [email or web address]
[2019-10-05] MEDS ORDERED: DIAZEPAM 2 MG TABLET PO ONE (18:30)
--- NOTE | 2019-10-05 20:08 | Operative Report ---
Nonrecallable Operative Report DATE OF SURGERY: 10/05/19 PREOPERATIVE DIAGNOSIS: Acute respiratory failure with hypoxia POSTOPERATIVE DIAGNOSIS: Acute respiratory failure with hypoxia OPERATION: Attempted right internal jugular line placement and right subclavian triple-lumen catheter placement SURGEON: SHAR CRAWLEY ANESTHESIA: Local TISSUE REMOVED OR ALTERED: None COMPLICATIONS: None INTRAOPERATIVE FINDINGS: See note PROCEDURE: Procedure after appropriate timeout and site verification the patient was placed on the hospital bed in a Trendelenburg position. The right neck and right chest were prepped and draped in usual sterile fashion. Using 1% lidocaine as anesthesia IN anesthetized the skin over the sternocleidomastoid muscle and the anterior triangle of the neck. Using a finder needle we able to cannulate the right internal jugular vein. Then using a 16-gauge needle the right internal jugular vein was accessed and a wire was placed through the needle the wire was placed into the internal jugular vein but could not be passed distal after multiple attempts at trying to pass a wire we were unable to and the site was abandoned. We then utilized the right subclavian location. I anesthetized the skin over the right subclavian area just underneath the right clavicle and accessed the right subclavian vein with a 16-gauge needle. Through the needle we placed the wire which passed easily. Over the wire we then placed a dilator which was removed and then the triple-lumen catheter was placed over the wire into the right superior vena cava. We had good flow and good blood return at the termination of placement. The catheter was fixed to the skin on the chest wall with 2-0 nylon. Sterile dressing was applied and confirmation of good position was made with chest x- ray. Patient tolerated the procedure well
--- NOTE | 2019-10-05 21:25 | XCELERA REPORT ---
[address] [address] Transthoracic Echocardiogram Report Name: RAMYA CALLAHAN Age: 63 yrs Gender: Female : 1955 Patient Status: Inpatient Patient Location: [facility]^A Study Date: 10/04/2019 07:30 PM Height: 67 in Weight: 275 lb BSA: 2.3 m2 Reason For Study: chf Ordering Physician: PA WILSON Performed By: Mercedes King Interpretation Summary Min post pericardial effusion. calcific aortic root not dilated. Mild nonstenotic calcific aortic valvular disease with 3 cusps, no AR, mild LV enlargement Mod mitral annular calcification, no MS, no MVP, mild MR with mild LA enlargement. Mild concentric LVH with LVEF 65%, and LVDD, Hypokinetic IVS, inferoseptal wall. Mild TR with mild pulm. HTN RVSP 34mm Hg, RA enlarged. MMode/2D Measurements & Calculations RVDd: 2.5 cm LVIDd: 5.6 cm FS: 29.0 % Ao root diam: 2.7 cm IVSd: 1.1 cm LVIDs: 4.0 cm EDV(Teich): Ao root area: LVPWd: 0.93 cm 153.1 ml ESV(Teich): 68.8 ml5.9 cm2 LA dimension: 4.0 cm EF(Teich): 55.1 % LVLd ap4: 6.8 cm SV(MOD-sp4): EDV(MOD-sp4): 40.0 ml 64.0 ml LVLs ap4: 5.9 cm ESV(MOD-sp4): 24.0 ml EF(MOD-sp4): 62.5 % Doppler Measurements & Calculations MV E max evin: MV P1/2t max evin: Ao V2 max: LV V1 max P.9 cm/sec 127.0 cm/sec 130.3 cm/sec 4.3 mmHg MV P1/2t: 61.9 msec Ao max PG: LV V1 max: 6.8 mmHg 103.7 cm/sec MVA(P1/2t): 3.6 cm2 MV dec slope: 601.1 cm/sec2 MV dec time: 0.21 sec TV V2 max: PA V2 max: TR max evin: MV P1/2t-pr_phl: 210.2 cm/sec 100.8 cm/sec 254.1 cm/sec 61.9 msec TV max PG: PA max P.1 mmHg TR max P.7 mmHg 25.8 mmHg I WMSI = 1.31 % Normal = 69 Segments Size X - Cannot 1 - Normal 2 - 3 - Akinetic4 - 1-2 small Interpret Hypokinetic Dyskinetic 3-5 moderate 5 - 6-14 large Aneurysmal 15-16 diffuse : PA WILSON Andre
[2019-10-05] MEDS: NORMAL SALINE INJ/PF 0.9% 10 ML SDV IV PRN (21:38)
[2019-10-06] MEDS: LEVALBUTEROL HCL NEB 1.25 MG/3 ML AMPUL NEB SCH ×3 (00:42→16:35)
[2019-10-06] MEDS: IPRATROPIUM BROMIDE 0.02% NEB 0.5 MG/2.5 ML AMPUL NEB SCH ×3 (00:42→16:35)
[2019-10-06] MEDS: NORMAL SALINE INJ/PF 0.9% 10 ML SDV IV PRN ×2 (07:04→21:26)
[2019-10-06 08:05] LABS: APPEARANCE,URINE SLIGHTLY-CLOUDY; BILIRUBIN,URINE NEGATIVE (NEGATIVE); COLOR,URINE YELLOW; GLUCOSE, URINE NEGATIVE (NEGATIVE); KETONES,URINE NEGATIVE (NEGATIVE); LEUKOCYTE ESTERASE,URINE SMALL (NEGATIVE); NITRITE,URINE NEGATIVE (NEGATIVE); PROTEIN,URINE NEGATIVE (NEGATIVE); URINE SPECIFIC GRAVITY 1.015; UROBILINOGEN,URINE NEGATIVE mg/dL (<2.0)
[2019-10-06] MEDS: FUROSEMIDE INJ/PF 40 MG/4 ML SDV IV SCH ×2 (09:27→21:24)
[2019-10-06] MEDS: METOPROLOL SUCCINATE 25 MG TAB.SR.24H PO SCH (09:27)
[2019-10-06] MEDS: DILTIAZEM HCL 60 MG TABLET PO SCH ×3 (09:27→21:21)
[2019-10-06] MEDS: FAMOTIDINE 20 MG TABLET PO SCH ×2 (09:28→21:22)
[2019-10-06] MEDS: GUAIFENESIN 600 MG TABLET.SA PO SCH ×2 (09:28→21:23)
[2019-10-06] MEDS: ASPIRIN 81 MG TABLET, CHEWABLE PO SCH (09:28)
[2019-10-06] MEDS: DOCUSATE SODIUM 100 MG CAPSULE PO SCH (09:28)
[2019-10-06] MEDS: ENOXAPARIN SODIUM INJ 150 MG/1 ML DISP.SYRIN SUBCUT SCH ×2 (09:33→21:42)
[2019-10-06 10:38] LABS: BLOOD UREA NITROGEN 17 mg/dL (7-20); CALCIUM 8.9 mg/dL (8.4-10.2); CHLORIDE 94 mmol/L (98-107); GLUCOSE 128 mg/dL (75-110); POTASSIUM 4.1 mmol/L (3.6-5.0)
[2019-10-06 10:45] LABS: ANION GAP 7 (5-19); CARBON DIOXIDE 37 mmol/L (22-30)
--- NOTE | 2019-10-06 10:45 | PDOC PROGRESS REPORT ---
Subjective Progress Note for:: 10/06/19 Subjective:: RAMYA CALLAHAN is a 63 year old female with a past medical history of hypertension, atrial fibrillation, CHF, pneumonia, obesity, chronic lymphedema with recurrent left lower extremity cellulitis, depression who was admitted 10/03/19 with atrial fibrillation RVR, CHF exacerbation, and a right lower lobe pneumonia. Patient was seen on morning rounds with family member present. She was found sitting up to the edge of the bed, comfortably, on supplemental oxygen via nasal cannula. She is feeling much better today. She reports decreased dyspnea with activity. Continues to have a cough but with decreased sputum production. She is also very pleased by the decrease in edema to bilateral hands and lower extremities. She denies fever, chills, orthopnea, abdominal pain, nausea vomiting and diarrhea. Have no other questions or concerns at this time. Nursing reports patient continues to be tachycardic (HR 100-110 at rest; 120-130 w/ activity). Reason For Visit: ACUTE RESPIRATORY FAILURE WITH HYPOXIA,AFID W/RVR, Physical Exam Vital Signs: Temp Pulse Resp BP Pulse Ox 97.7 F 122 H 18 124/70 93 10/06/19 08:50 10/06/19 08:54 10/06/19 08:54 10/06/19 08:50 10/06/19 08:54 Intake & Output 10/05/19 10/06/19 10/07/19 06:59 06:59 06:59 Intake Total 1945 1753 Output Total 1500 7225 Balance 445 -5472 Weight 125.2 kg 119.1 kg General appearance: PRESENT: no acute distress, cooperative, morbidly obese, we ll-developed, well-nourished Head exam: PRESENT: atraumatic, normocephalic Eye exam: PRESENT: conjunctiva pink, EOMI, PERRLA. ABSENT: scleral icterus Mouth exam: PRESENT: moist, tongue midline Teeth exam: PRESENT: poor dentation Respiratory exam: PRESENT: rhonchi - Improved, symmetrical, unlabored, other - Supplemental oxygen via nasal cannula. ABSENT: rales, wheezes Cardiovascular exam: PRESENT: RRR, +S1, +S2, tachycardia - Intermittent tachyc ardia with activity. ABSENT: diastolic murmur, rubs, systolic murmur Pulses: PRESENT: normal dorsalis pedis pul Vascular exam: PRESENT: normal capillary refill Extremities exam: PRESENT: full ROM. ABSENT: calf tenderness, clubbing, pedal edema Musculoskeletal exam: PRESENT: ambulatory Neurological exam: PRESENT: alert, awake, oriented to person, oriented to place, oriented to time, oriented to situation, CN II-XII grossly intact. ABSENT: motor sensory deficit Psychiatric exam: PRESENT: appropriate affect, normal mood. ABSENT: homicidal ideation, suicidal ideation Skin exam: PRESENT: dry, intact, warm. ABSENT: cyanosis, rash Results Laboratory Results: 10/05/19 05:34 10/06/19 07:35 Urine Color YELLOW Urine Appearance SLIGHTLY-CLOUDY Urine pH 6.0 Ur Specific [place] 1.015 Urine Protein NEGATIVE Urine Glucose (UA) NEGATIVE Urine Ketones NEGATIVE Urine Blood NEGATIVE Urine Nitrite NEGATIVE Ur Leukocyte Esterase SMALL H Urine WBC (Auto) 5 Urine RBC (Auto) 1 10/03/19 10/03/19 10/06/19 14:50 16:55 08:36 Troponin I < 0.012 < 0.012 NT-Pro-B Natriuret Pep 2810 H 1250 H Assessment and Plan - Diagnosis (1) Atrial fibrillation with rapid ventricular response Is this a current diagnosis for this admission?: Yes Plan: Patient with history of atrial fibrillation. Improved rate control on p.o. diltiazem and home dose metoprolol. Likely exacerbated by right lower lobe pneumonia. TSH normal Patient is admitted to [facility] on continuous cardiac telemetry. Have transition to oral diltiazem; increased dose today. Continue home dose Toprolol. Full dose Lovenox. Patient is insured; will plan to transition to Eliquis at discharge. Daily aspirin therapy. Discussed with Dr. Bukr; patient may be a candidate for cardioversion toward end of admission or at follow up once PNA is appropriately treated. Ensure patient is d/c'd on anticoagulant. (2) Right lower lobe pneumonia Qualifiers: Pneumonia type: due to unspecified organism Qualified Code(s): J18.9 - Pneumonia, unspecified organism Is this a current diagnosis for this admission?: Yes Plan: Improved. Community-acquired pneumonia. Patient is afebrile with normal WBCs, though with significant right lower infiltrate on chest x-ray and increased dyspnea with sputum production. Blood cultures negative at 48 hours Sputum cultures not yet received. Patient is empirically placed on IV Rocephin and azithromycin. Have discontinued IV Rocephin. Azithromycin day 4 of 5. Supplemental oxygen as needed. As needed nebulizer treatments. Mucinex twice daily. Robitussin as needed. Encourage pulmonary toilet with incentive spirometer, flutter valve, and ambul ation. (3) CHF exacerbation Qualifiers: Heart failure type: unspecified Qualified Code(s): I50.9 - Heart failure, unspecified Is this a current diagnosis for this admission?: Yes Plan: Improed. Secondary to right lower lobe pneumonia and atrial fibrillation RVR. proBNP 2800-> 1250 Wt down 6 kg Echocardiogram revealed LVEF 65%, mild concentric LVH with left ventricular d iastolic dysfunction, hypokinetic IVS and inferior septal wall. Mild pulmonary hypertension. CTA Chest to evaluate ectatic aorta Continue diuresis with furosemide. Cardiac diet. Strict I&O's. Daily weights. (4) Acute respiratory failure with hypoxia Is this a current diagnosis for this admission?: Yes Plan: Improved. Secondary to #1-3. Evaluation and management as above. (5) Morbid obesity with BMI of 40.0-44.9, adult Is this a current diagnosis for this admission?: Yes Plan: BMI 43.2. Lifestyle modification dietary discretion advised. Patient educator is consulted. (6) Ectatic aorta Is this a current diagnosis for this admission?: Yes Plan: Follow up CTA Chest to establish baseline measurements. - Time Time Spent with patient: 35 or more minutes Medications reviewed and adjusted accordingly: Yes Anticipated discharge: Home Within: within 48 hours
[2019-10-06] MEDS: AZITHROMYCIN 500 MG in DEXTROSE 5%-WATER 250 ML IV SCH (12:32)
--- NOTE | 2019-10-06 12:43 | RADIOLOGY REPORT (SQ) ---
EXAM DESCRIPTION: CTA CHEST COMPLETED DATE/TIME: 10/06/2019 12:28 pm REASON FOR STUDY: TAA; time dye for aorta please I50.9 HEART FAILURE, UNSPECIFIED COMPARISON: None. TECHNIQUE: CT scan of the chest performed using helical scanning technique with dynamic intravenous contrast injection. Images reviewed with lung, soft tissue and bone windows. Reconstructed coronal and sagittal MPR images reviewed. Additional 3 dimensional post-processing performed to develop Maximal Intensity Projection images ([place] P). All images stored on PACS. All CT scanners at this facility use dose modulation, iterative reconstruction, and/or weight based d osing when appropriate to reduce radiation dose to as low as reasonably achievable (ALARA). [facility]: Dose Right [facility]: CareDose [facility]: Dose Right [facility]: Teradose 4D [facility]: Kimengi CONTRAST TYPE AND DOSE: contrast/concentration: Isovue 350.00 mg/ml; Total Contrast Delivered: 72.0 ml; Total Saline Delivered: 80.0 ml Contrast bolus adequate for pulmonary arteries and aorta. RENAL FUNCTION: GFR > 60. RADIATION DOSE: CT Rad equipment meets quality standard of care and radiation dose reduction techniq ues were employed. CTDIvol: 6.6 - 26.4 mGy. DLP: 818 mGy-cm. . LIMITATIONS: None. FINDINGS: LUNGS AND PLEURA: Consolidation and volume loss in the right lower lobe, extensive. Small right pleural effusion which looks relatively simple. Mild subsegmental atelectasis in the lingula. Lungs otherwise generally clear. No pneumothorax. AORTA AND GREAT VESSELS: No aortic aneurysm or dissection. Mild atherosclerotic calcification withou t significant plaque or luminal narrowing. Great vessel origins are patent. HEART: Cardiomegaly. Mild coronary calcification. No pericardial effusion. PULMONARY ARTERIES: No emboli visualized in the main pulmonary arteries or the segmental branches. HILAR AND MEDIASTINAL STRUCTURES: No bulky adenopathy or mass or esophageal dilatation. HARDWARE: Right central line, tip to the right atrium in appropriate position. UPPER ABDOMEN: Liver likely enlarged. Incomplete evaluation of the upper abdomen. No suspicious or acute findings detected. Upper abdominal aorta looks normal. Mesenteric arteries grossly patent. THYROID AND OTHER SOFT TISSUES: Enlarged and multinodular with calcifications on the right. Minimal mass-effect on the right aspect of the trachea. BONES: No fracture identified. Multilevel spondylosis. Areas of sclerosis patchy multiple: Thoracic region or likely related to the degenerative disc changes. No destructive lesions or fracture appre ciated. 3D MIPS: Confirm above findings. OTHER: No other significant finding. IMPRESSION: 1. No aortic aneurysm or dissection or significant narrowing. 2. No pulmonary embolus. 3. Extensive right lower lobe consolidation and volume loss consistent with pneumonia. There is righ t parapneumonic effusion. COMMENT: Quality ID # [id number]: Final reports with documentation of one or more dose reduction techniques (e.g., Automated exposure control, adjustment of the mA and/or kV according to patient size, use of iterative reconstruction technique) TECHNICAL DOCUMENTATION: JOB ID: [id number] 2010 [employer]- All Rights Reserved Reading location - IP/workstation name: [email or web address]
--- NOTE | 2019-10-06 12:56 | CDI QUERY ---
CDI Query CDI Review: Dear Provider: To better reflect your patients severity of illness, morbidity, and resource utilization Please specify and document in the Progress Notes and Discharge Summary if you are monitoring / treating / evaluating any of the following conditions: Query Clinical indicators Please specify the type of CHF Diastolic Combined diastolic and systolic Other heart failure (please specify) Unable to determine Please specify the acuity: Acute Acute on chronic Unable to determine Per Progress Notes: (3) CHF exacerbation Qualifiers: Heart failure type: unspecified Qualified Code(s): I50.9 - Heart failure, unspecified Is this a current diagnosis for this admission?: Yes Plan: Improed. Secondary to right lower lobe pneumonia and atrial fibrillation RVR. proBNP 2800-> 1250 Echocardiogram revealed LVEF 65%, mild concentric LVH with left ventricular diastolic dysfunction, hypokinetic IVS and inferior septal wall. Mild pulmonary hypertension. The terms probable, suspected, likely, possible or still to be ruled out may be used if you are unable to determine the exact nature of a condition. Thank you, Clinical Documentation Physician Advisors GARRY Martinez RN, BSN RN Office [phone] Office [phone]
[2019-10-06] MEDS: LEVALBUTEROL HCL NEB 1.25 MG/3 ML AMPUL NEB PRN (20:50)
[2019-10-06] MEDS: ACETYLCYSTEINE 20% SOLN 800 MG/4 ML VIAL.NEB NEB SCH (20:50)
[2019-10-06] MEDS: DIAZEPAM 2 MG TABLET PO PRN (21:22)
[2019-10-06] MEDS: ACETAMINOPHEN 325 MG TABLET PO PRN (21:26)
[2019-10-07] MEDS: LEVALBUTEROL HCL NEB 1.25 MG/3 ML AMPUL NEB SCH ×3 (00:18→19:12)
[2019-10-07] MEDS: IPRATROPIUM BROMIDE 0.02% NEB 0.5 MG/2.5 ML AMPUL NEB SCH ×3 (00:18→19:12)
[2019-10-07] MEDS: DILTIAZEM HCL 60 MG TABLET PO SCH ×4 (03:53→21:11)
[2019-10-07] MEDS: NORMAL SALINE INJ/PF 0.9% 10 ML SDV IV PRN (05:27)
[2019-10-07] MEDS: ACETYLCYSTEINE 20% SOLN 800 MG/4 ML VIAL.NEB NEB SCH ×2 (08:24→19:12)
[2019-10-07] MEDS ORDERED: FUROSEMIDE INJ/PF 40 MG/4 ML SDV IV SCH (10:00)
[2019-10-07] MEDS: FAMOTIDINE 20 MG TABLET PO SCH ×2 (10:07→21:12)
[2019-10-07] MEDS: BUSPIRONE HCL 10 MG TABLET PO SCH ×2 (10:08→21:12)
[2019-10-07] MEDS: GUAIFENESIN 600 MG TABLET.SA PO SCH ×2 (10:08→21:12)
[2019-10-07] MEDS: METOPROLOL SUCCINATE 25 MG TAB.SR.24H PO SCH (10:08)
[2019-10-07] MEDS: ASPIRIN 81 MG TABLET, CHEWABLE PO SCH (10:08)
[2019-10-07] MEDS: ENOXAPARIN SODIUM INJ 150 MG/1 ML DISP.SYRIN SUBCUT SCH ×2 (10:09→21:21)
[2019-10-07] MEDS: DOCUSATE SODIUM 100 MG CAPSULE PO SCH (10:09)
[2019-10-07] MEDS: FUROSEMIDE INJ/PF 20 MG/2 ML SDV IV SCH ×2 (10:11→21:12)
[2019-10-07] MEDS: AZITHROMYCIN 500 MG in DEXTROSE 5%-WATER 250 ML IV SCH (10:12)
--- NOTE | 2019-10-07 11:44 | PDOC PROGRESS REPORT ---
Subjective Progress Note for:: 10/07/19 Reason For Visit: ACUTE RESPIRATORY FAILURE WITH HYPOXIA,AFID W/RVR, Physical Exam Vital Signs: Temp Pulse Resp BP Pulse Ox 97.4 F 127 H 18 114/69 98 10/07/19 08:22 10/07/19 08:24 10/07/19 08:24 10/07/19 08:22 10/07/19 08:24 Intake & Output 10/06/19 10/07/19 10/08/19 06:59 06:59 06:59 Intake Total 1753 3104 Output Total 7290 7600 Balance -6160 -2593 Weight 119.1 kg 120.3 kg General appearance: PRESENT: no acute distress, cooperative, morbidly obese, well-developed, well-nourished Head exam: PRESENT: atraumatic, normocephalic Eye exam: PRESENT: conjunctiva pink, EOMI, PERRLA. ABSENT: scleral icterus Mouth exam: PRESENT: moist, tongue midline Teeth exam: PRESENT: poor dentation Respiratory exam: PRESENT: prolonged expiratory phas, rhonchi, symmetrical, unlabored, other - Supplemental oxygen via nasal cannula. ABSENT: rales, wheezes Cardiovascular exam: PRESENT: irregular rhythm, +S1, +S2, tachycardia - Intermittent tachycardia with activity. ABSENT: diastolic murmur, rubs, sys tolic murmur Vascular exam: PRESENT: normal capillary refill GI/Abdominal exam: PRESENT: normal bowel sounds, soft. ABSENT: distended, guarding, mass, organolmegaly, rebound, tenderness Rectal exam: PRESENT: deferred Extremities exam: PRESENT: full ROM, +2 edema - pitting BLE; significantly reduced. ABSENT: calf tenderness, clubbing, pedal edema Neurological exam: PRESENT: alert, awake, oriented to person, oriented to place, oriented to time, oriented to situation, CN II-XII grossly intact. ABSENT: motor sensory deficit Psychiatric exam: PRESENT: appropriate affect, normal mood. ABSENT: homicidal ideation, suicidal ideation Skin exam: PRESENT: dry, intact, warm. ABSENT: cyanosis, rash Results Laboratory Results: 10/05/19 05:34 10/06/19 07:04 10/03/19 10/03/19 10/06/19 14:50 16:55 08:36 Troponin I < 0.012 < 0.012 NT-Pro-B Natriuret Pep 2810 H 1250 H Impressions: Chest/Abdomen CTA 10/06/19 00:00 IMPRESSION: 1. No aortic aneurysm or dissection or significant narrowing. 2. No pulmonary embolus. 3. Extensive right lower lobe consolidation and volume loss consistent with pneumonia. There is right parapneumonic effusion. Assessment and Plan - Diagnosis (1) Atrial fibrillation with rapid ventricular response Is this a current diagnosis for this admission?: Yes Plan: Improved rate control. HR 100-110 at rest; 120s with minimal activity. Patient with history of atrial fibrillation. Likely exacerbated by right lower lobe pneumonia. TSH normal Patient is admitted to [facility] on continuous cardiac telemetry. Continue oral diltiazem. Continue home dose Toprolol. Full dose Lovenox. Patient is insured; will plan to transition to [facility] at discharge. Daily aspirin therapy. Consider formal cardiology consultation if tachycardia persists once PNA is adequately treated. Discussed with Dr. Burk; patient may be a candidate for cardioversion toward end of admission or at follow up once PNA is appropriately treated. Ensure patient is d/c'd on anticoagulant. (2) Right lower lobe pneumonia Qualifiers: Pneumonia type: due to unspecified organism Qualified Code(s): J18.9 - Pneumonia, unspecified organism Is this a current diagnosis for this admission?: Yes Plan: Improved. Community-acquired pneumonia. Patient is afebrile with normal WBCs, though with significant right lower inf iltrate on chest x-ray and increased dyspnea with sputum production. Blood cultures negative at 72 hours Sputum cultures not yet received. CTA Chest (10/06/19) shows continued extensive RLL consolidation and volume loss consistent with pneumonia with parapneumonic effusion. Patient is empirically placed on IV Rocephin and azithromycin. Have discontinued IV Rocephin. Azithromycin day 5 of 5. Supplemental oxygen as needed. Begin weaning O2. As needed nebulizer treatments. Mucomyst nebs twice daily. Mucinex twice daily. Robitussin as needed. Encourage pulmonary toilet with incentive spirometer, flutter valve, and ambulation. Consider thoracentesis. (3) CHF exacerbation Qualifiers: Heart failure type: diastolic Qualified Code(s): I50.33 - Acute on chronic diastolic (congestive) heart failure Is this a current diagnosis for this admission?: Yes Plan: Improved. Secondary to right lower lobe pneumonia and atrial fibrillation RVR. proBNP 2800-> 1250 Wt down ~6 kg Echocardiogram revealed LVEF 65%, mild concentric LVH with left ventricular diastolic dysfunction, hypokinetic IVS and inferior septal wall. Mild pulmonary hypertension. CTA Chest to evaluate ectatic aorta Continue diuresis with furosemide. Cardiac diet. Strict I&O's. Daily weights. (4) Acute respiratory failure with hypoxia Is this a current diagnosis for this admission?: Yes Plan: Improved. Secondary to #1-3. Evaluation and management as above. (5) Morbid obesity with BMI of 40.0-44.9, adult Is this a current diagnosis for this admission?: Yes Plan: BMI 43.2. Lifestyle modification dietary discretion advised. Patient educator is consulted. (6) Ectatic aorta Is this a current diagnosis for this admission?: No Plan: Ruled out. Ectatic aorta noted on CXR. Follow-up CTA was negative for aortic aneurysm or dissection. No significant narrowing. - Time Time Spent with patient: 35 or more minutes Medications reviewed and adjusted accordingly: Yes Anticipated discharge: Home
[2019-10-07] MEDS: ACETAMINOPHEN 325 MG TABLET PO PRN (21:12)
[2019-10-07] MEDS: DIAZEPAM 2 MG TABLET PO PRN (21:12)
[2019-10-08] MEDS: DILTIAZEM HCL 60 MG TABLET PO SCH ×3 (04:40→15:31)
[2019-10-08 05:22] LABS: HEMATOCRIT 38.9 % (36.0-47.0); HEMOGLOBIN 12.8 g/dL (12.0-15.5); MEAN CORPUSCULAR HEMOGLOBIN 30.4 pg (27.0-33.4); MEAN CORPUSCULAR HGB CONC 32.9 g/dL (32.0-36.0); MEAN CORPUSCULAR VOLUME 92 fl (80-97); PLATELET COUNT 246 10^3/uL (150-450); RED BLOOD COUNT 4.21 10^6/uL (3.72-5.28); RED CELL DISTRIBUTION WIDTH 15.2 % (11.5-14.0); WHITE BLOOD COUNT 6.5 10^3/uL (4.0-10.5)
[2019-10-08 05:28] LABS: APPEARANCE,URINE CLEAR; BILIRUBIN,URINE NEGATIVE (NEGATIVE); COLOR,URINE YELLOW; GLUCOSE, URINE NEGATIVE (NEGATIVE); KETONES,URINE NEGATIVE (NEGATIVE); LEUKOCYTE ESTERASE,URINE MODERATE (NEGATIVE); NITRITE,URINE NEGATIVE (NEGATIVE); PROTEIN,URINE NEGATIVE (NEGATIVE); URINE SPECIFIC GRAVITY 1.013
[2019-10-08 05:39] LABS: BLOOD UREA NITROGEN 19 mg/dL (7-20); CALCIUM 9.2 mg/dL (8.4-10.2); CHLORIDE 90 mmol/L (98-107); GLUCOSE 98 mg/dL (75-110); POTASSIUM 4.1 mmol/L (3.6-5.0)
[2019-10-08 05:52] LABS: ANION GAP 10 (5-19); CARBON DIOXIDE 39 mmol/L (22-30)
[2019-10-08] MEDS: ACETAMINOPHEN 325 MG TABLET PO PRN (06:10)
[2019-10-08] MEDS: IPRATROPIUM BROMIDE 0.02% NEB 0.5 MG/2.5 ML AMPUL NEB SCH (08:54)
[2019-10-08] MEDS: ACETYLCYSTEINE 20% SOLN 800 MG/4 ML VIAL.NEB NEB SCH (08:54)
[2019-10-08] MEDS: LEVALBUTEROL HCL NEB 1.25 MG/3 ML AMPUL NEB SCH (08:54)
[2019-10-08] MEDS: BUSPIRONE HCL 10 MG TABLET PO SCH (09:27)
[2019-10-08] MEDS: FAMOTIDINE 20 MG TABLET PO SCH (09:27)
[2019-10-08] MEDS: GUAIFENESIN 600 MG TABLET.SA PO SCH (09:27)
[2019-10-08] MEDS: ASPIRIN 81 MG TABLET, CHEWABLE PO SCH (09:27)
[2019-10-08] MEDS: DOCUSATE SODIUM 100 MG CAPSULE PO SCH (09:27)
[2019-10-08] MEDS: METOPROLOL SUCCINATE 25 MG TAB.SR.24H PO SCH (09:27)
[2019-10-08] MEDS: FUROSEMIDE INJ/PF 20 MG/2 ML SDV IV SCH (09:27)
[2019-10-08] MEDS: AZITHROMYCIN 500 MG in DEXTROSE 5%-WATER 250 ML IV SCH (09:27)
[2019-10-08 15:08] VITALS: BP 140/75
[2019-10-08] MEDS: ENOXAPARIN SODIUM INJ 150 MG/1 ML DISP.SYRIN SUBCUT SCH (15:27)
[2019-10-08] MEDS ORDERED: TUBERCULIN,PURIF.PROT.DERIV. 5 TU/0.1 ML TEST 1 ML VIAL ID ONE (17:23)
--- NOTE | 2019-10-08 18:05 | PDOC DISCHARGE SUMMARY ---
Impression - Admit/DC Date/PCP Admission Date/Primary Care Provider: 10/03/19 18:59 KAIN SANDY MD Discharge Date: 10/08/19 - Discharge Diagnosis (1) Atrial fibrillation with rapid ventricular response Is this a current diagnosis for this admission?: Yes (2) Right lower lobe pneumonia Is this a current diagnosis for this admission?: Yes (3) CHF exacerbation Is this a current diagnosis for this admission?: Yes (4) Acute respiratory failure with hypoxia Is this a current diagnosis for this admission?: Yes (5) Morbid obesity with BMI of 40.0-44.9, adult Is this a current diagnosis for this admission?: Yes (6) Ectatic aorta Is this a current diagnosis for this admission?: No - Additional Information Resuscitation Status: Full Code Discharge Diet: Cardiac Discharge Activity: Activity As Tolerated, Balance Activity w/Rest, Weigh Daily Referrals: ANNITA HUNT MD [ACTIVE STAFF] - 10/16/19 1:15 pm (Bring ID, insurance cards and medications to this appointment.) KAIN SANDY MD [Primary Care Provider] - 10/11/19 1:45 pm (Goes to the [facility] - [phone]) Prescriptions: Aspirin [Aspirin 81 mg Chewable Tablet] 81 mg PO DAILY #90 tab.chew Buspirone HCl [Buspar 10 mg Tablet] 10 mg PO Q12 #60 tablet Diltiazem HCl [Cardizem Cd 120 mg Capsule] 1 cap.sr PO BID #60 cap.sr Apixaban [Eliquis 5 mg Tablet] 5 mg PO BID #60 tablet Furosemide [Lasix 40 mg Tablet] 40 mg PO QAM #30 tablet Guaifenesin [Mucinex Sr 600 mg Tablet.sa] 600 mg PO Q12 #14 tablet.sa Home Medications: Metoprolol Succinate [Toprol Xl 25 mg Tab.sr] 25 mg PO DAILY 10/03/19 Acetaminophen [Tylenol 325 mg Tablet] 650 mg PO Q4HP PRN tablet 10/08/19 Apixaban [Eliquis 5 mg Tablet] 5 mg PO BID #60 tablet 10/08/19 Aspirin [Aspirin 81 mg Chewable Tablet] 81 mg PO DAILY #90 tab.chew 10/08/19 Buspirone HCl [Buspar 10 mg Tablet] 10 mg PO Q12 #60 tablet 10/08/19 Diltiazem HCl [Cardizem Cd 120 mg Capsule] 1 cap.sr PO BID #60 cap.sr 10/08/19 Furosemide [Lasix 40 mg Tablet] 40 mg PO QAM #30 tablet 10/08/19 Guaifenesin [Mucinex Sr 600 mg Tablet.sa] 600 mg PO Q12 #14 tablet.sa 10/08/19 History of Present Illiness History of Present Illness: RAMYA CALLAHAN is a 63 year old female with a past medical history of hypertension, atrial fibrillation, CHF, pneumonia, obesity, chronic lymphedema with recurrent left lower extremity cellulitis, depression who presented to the emergency department today with a complaint of 3 days of progressively worsening shortness of breath, cough, orthopnea, palpitations, and peripheral edema. Evaluation in the emergency department revealed the patient was in atrial fibrillation RVR with a heart rate initially in the 130s to 140s, tachypnea, and hypoxia on room air. Laboratory evaluation revealed benign CBC, mildly elevated bicarb, negative troponins, BNP elevated 2800 (no prior labs on file), and chest x-ray suggestive of a right lower lobe pneumonia. Patient was provided IV fluid boluses, Rocephin and azithromycin. Rate control was briefly achieved through diltiazem push. She was then referred to the hospitalist service for admission management of the above-stated complaints findings. Hospital Course Hospital Course: (1) Atrial fibrillation with rapid ventricular response Now rate controlled on oral diltiazem and metoprolol while ambulatory. Likely exacerbated by right lower lobe pneumonia. TSH normal Patient was admitted to [facility] on continuous cardiac telemetry. She was initially placed on diltiazem drip; has been transitioned to oral diltiazem. Her home dose Toprol were continued. While admitted she was placed on full dose Lovenox; she has been transitioned to Eliquis to continue at discharge. She is advised to continue her daily aspirin therapy. She has been provided a follow-up appointment with Dr. Hunt. (2) Right lower lobe pneumonia Significantly improved; now maintaining oxygen saturations while ambulatory on room air, clear lung sounds, afebrile, with normal WBCs. Community-acquired pneumonia. Blood cultures negative at 4 days Sputum cultures growing Gram-positive cocci in pairs CTA Chest (10/06/19) shows continued extensive RLL consolidation and volume loss consistent with pneumonia with parapneumonic effusion. Patient is empirically placed on IV Rocephin and azithromycin. Received 2 days of IV Rocephin and 5 days of azithromycin. Continue Mucinex twice daily and Robitussin as needed. Encourage continued pulmonary toilet with incentive spirometer, flutter valve, and ambulation. Patient is encouraged to stop smoking. (3) CHF exacerbation Significantly improved Secondary to right lower lobe pneumonia and atrial fibrillation RVR. proBNP 2800-> 1250 Wt down ~9 kg Echocardiogram revealed LVEF 65%, mild concentric LVH with left ventricular diastolic dysfunction, hypokinetic IVS and inferior septal wall. Mild pulmonary hypertension. CTA Chest to evaluate ectatic aorta Patient is discharged home on p.o. diltiazem, Toprol, and furosemide. She is instructed to eat a low-sodium diet. She is advised to weigh daily and to report any weight gain of greater than 2 pounds to her provider. She is agreeable to home health nursing for disease education and management. To follow-up with Dr. Hunt on 10/16/2019 at 1:15 PM (4) Acute respiratory failure with hypoxia Resolved; now maintaining oxygen saturations while ambulatory on room air without increased work of breathing or dyspnea. Secondary to #1-3. (5) Morbid obesity with BMI of 40.0-44.9, adult BMI 40.9 Lifestyle modification dietary discretion advised. (6) Ectatic aorta Ruled out. Ectatic aorta noted on CXR. Follow-up CTA was negative for aortic aneurysm or dissection. No significant narrowing. Physical Exam Vital Signs: Temp Pulse Resp BP Pulse Ox 97.3 F 97 16 140/75 H 96 10/08/19 15:01 10/08/19 15:01 10/08/19 15:01 10/08/19 15:01 10/08/19 15:01 Intake & Output 10/07/19 10/08/19 10/09/19 06:59 06:59 06:59 Intake Total 8600 1426 702 Output Total 9180 2750 500 Balance -1396 -1324 202 Weight 120.3 kg 118.5 kg General appearance: PRESENT: no acute distress, morbidly obese, well-developed, well-nourished Head exam: PRESENT: atraumatic, normocephalic Eye exam: PRESENT: conjunctiva pink, EOMI, PERRLA. ABSENT: scleral icterus Mouth exam: PRESENT: moist, tongue midline Teeth exam: PRESENT: poor dentation Respiratory exam: PRESENT: clear to auscultation heriberto, symmetrical, unlabored, other - Ambulatory on room air. ABSENT: rales, rhonchi, wheezes Cardiovascular exam: PRESENT: irregular rhythm, +S1, +S2. ABSENT: diastolic murmur, rubs, systolic murmur Pulses: PRESENT: normal dorsalis pedis pul Vascular exam: PRESENT: normal capillary refill GI/Abdominal exam: PRESENT: normal bowel sounds, soft. ABSENT: distended, guarding, mass, organolmegaly, rebound, tenderness Rectal exam: PRESENT: deferred Extremities exam: PRESENT: full ROM, pedal edema - +2 nonpitting BLE, +1 edema - Nonpitting, BLE. ABSENT: calf tenderness, clubbing Musculoskeletal exam: PRESENT: ambulatory Neurological exam: PRESENT: alert, awake, oriented to person, oriented to place, oriented to time, oriented to situation, CN II-XII grossly intact. ABSENT: motor sensory deficit Psychiatric exam: PRESENT: agitated, anxious. ABSENT: homicidal ideation, suicidal ideation Skin exam: PRESENT: dry, intact, warm. ABSENT: cyanosis, rash Results Laboratory Results: WBC 6.5 10^3/uL (4.0-10.5) 10/08/19 03:57 RBC 4.21 10^6/uL (3.72-5.28) 10/08/19 03:57 Hgb 12.8 g/dL (12.0-15.5) 10/08/19 03:57 Hct 38.9 % (36.0-47.0) 10/08/19 03:57 MCV 92 fl (80-97) 10/08/19 03:57 MCH 30.4 pg (27.0-33.4) 10/08/19 03:57 MCHC 32.9 g/dL (32.0-36.0) 10/08/19 03:57 RDW 15.2 % (11.5-14.0) H 10/08/19 03:57 Plt Count 246 10^3/uL (150-450) 10/08/19 03:57 Lymph % (Auto) 10.6 % (13-45) L 10/03/19 14:50 [place] % (Auto) 8.9 % (3-13) 10/03/19 14:50 Eos % (Auto) 0.5 % (0-6) 10/03/19 14:50 Baso % (Auto) 1.0 % (0-2) 10/03/19 14:50 Absolute Neuts (auto) 7.1 10^3/uL (1.7-8.2) 10/03/19 14:50 Absolute Lymphs (auto) 1.0 10^3/uL (0.5-4.7) 10/03/19 14:50 Absolute Monos (auto) 0.8 10^3/uL (0.1-1.4) 10/03/19 14:50 Absolute Eos (auto) 0.0 10^3/uL (0.0-0.6) 10/03/19 14:50 Absolute Basos (auto) 0.1 10^3/uL (0.0-0.2) 10/03/19 14:50 Seg Neutrophils % 79.0 % (42-78) H 10/03/19 14:50 Sodium 138.9 mmol/L (137-145) 10/08/19 03:57 Potassium 4.1 mmol/L (3.6-5.0) 10/08/19 03:57 Chloride 90 mmol/L (98-107) L 10/08/19 03:57 Carbon Dioxide 39 mmol/L (22-30) H 10/08/19 03:57 Anion Gap 10 (5-19) 10/08/19 03:57 BUN 19 mg/dL (7-20) 10/08/19 03:57 Creatinine 0.69 mg/dL (0.52-1.25) 10/08/19 03:57 Est GFR ( Amer) > 60 (>60) 10/08/19 03:57 Est GFR (MDRD) Non-Af > 60 (>60) 10/08/19 03:57 Glucose 98 mg/dL (75-110) 10/08/19 03:57 Calcium 9.2 mg/dL (8.4-10.2) 10/08/19 03:57 Total Bilirubin 0.7 mg/dL (0.2-1.3) 10/03/19 14:50 Direct Bilirubin 0.2 mg/dL (0.0-0.4) 10/03/19 14:50 Neonat Total Bilirubin Not Reportable 10/03/19 14:50 Neonat Direct Bilirubin Not Reportable 10/03/19 14:50 Neonat Indirect Bili Not Reportable 10/03/19 14:50 AST 45 U/L (14-36) H 10/03/19 14:50 ALT 49 U/L (<35) 10/03/19 14:50 Alkaline Phosphatase 84 U/L (38-126) 10/03/19 14:50 Troponin I < 0.012 ng/mL 10/03/19 16:55 NT-Pro-B Natriuret Pep 1250 pg/mL (<125) H 10/06/19 08:36 Total Protein 7.3 g/dL (6.3-8.2) 10/03/19 14:50 Albumin 3.6 g/dL (3.5-5.0) 10/03/19 14:50 TSH 1.39 uIU/mL (0.47-4.68) 10/03/19 16:55 Urine Color YELLOW 10/08/19 04:01 Urine Appearance CLEAR 10/08/19 04:01 Urine pH 8.0 (5.0-9.0) 10/08/19 04:01 Ur Specific Riley 1.013 10/08/19 04:01 Urine Protein NEGATIVE mg/dL (NEGATIVE) 10/08/19 04:01 Urine Glucose (UA) NEGATIVE mg/dL (NEGATIVE) 10/08/19 04:01 Urine Ketones NEGATIVE mg/dL (NEGATIVE) 10/08/19 04:01 Urine Blood NEGATIVE (NEGATIVE) 10/08/19 04:01 Urine Nitrite NEGATIVE (NEGATIVE) 10/08/19 04:01 Urine Bilirubin NEGATIVE (NEGATIVE) 10/08/19 04:01 Urine Urobilinogen 2.0 mg/dL (<2.0) H 10/08/19 04:01 Ur Leukocyte Esterase MODERATE (NEGATIVE) H 10/08/19 04:01 Urine WBC (Auto) 20 /HPF 10/08/19 04:01 Urine RBC (Auto) 3 /HPF 10/08/19 04:01 Urine Bacteria (Auto) 1+ /HPF 10/08/19 04:01 Squamous Epi Cells Auto 5 /HPF 10/08/19 04:01 Urine Mucus (Auto) RARE /LPF 10/06/19 07:35 Urine Ascorbic Acid NEGATIVE (NEGATIVE) 10/08/19 04:01 10/03/19 10/03/19 10/06/19 14:50 16:55 08:36 Troponin I < 0.012 < 0.012 NT-Pro-B Natriuret Pep 2810 H 1250 H Impressions: Chest X-Ray 10/03/19 13:33 IMPRESSION: Patchy right basilar airspace disease compatible with pneumonia. Small right effusion. Stable large cardiac silhouette and central vascular congestion. Chest/Abdomen CTA 10/06/19 00:00 IMPRESSION: 1. No aortic aneurysm or dissection or significant narrowing. 2. No pulmonary embolus. 3. Extensive right lower lobe consolidation and volume loss consistent with pneumonia. There is right parapneumonic effusion. Plan Plan of Treatment: Follow-up with primary care provider within 1 week. Follow-up with Dr. Hunt within 1 to 2 weeks. Take medications as prescribed. Eat a cardiac diet, weigh daily. Stop smoking. Return to emergency department as needed for concerning symptoms. Time Spent: Greater than 30 Minutes Stroke Is this a Stroke Patient?: No Acute Heart Failure - Is this a Heart Failure Patient?: Yes Documentation of LVEF assessment?: Yes LVEF < 40%?: No- if no continue to question #3 3. Anticoagulant therapy for permanect/persistent/paraoxysmal Afib or Aflutter: Yes Follow-up Appointment scheduled within 7 days?: Yes
== END 2019-10-08 17:45 | disposition home or self-care (01) | DRG 193 ==
LOC: ER 12:39 → INTOOBSV 17:59 → EH 17:59 → OBSVTOIN 18:59 → 3S 10-04 02:50
PROVIDERS: ADMIT Internal Medicine; ATTEND Internal Medicine
PROC: 02HV33Z Insertion of Infusion Device into Superior Vena Cava, Percutaneous Approach (ICD-10-PCS; principal; 2019-10-08)
PROC: 3E02340 Introduction of Influenza Vaccine into Muscle, Percutaneous Approach (ICD-10-PCS; 2019-10-08)
DX: J18.9 Pneumonia, unspecified organism (principal); J96.01 Acute respiratory failure with hypoxia; I50.33 Acute on chronic diastolic (congestive) heart failure; Z68.41 Body mass index [BMI] 40.0-44.9, adult; I27.20 Pulmonary hypertension, unspecified; I11.0 Hypertensive heart disease with heart failure; I48.91 Unspecified atrial fibrillation; E66.01 Morbid (severe) obesity due to excess calories; I77.819 Aortic ectasia, unspecified site; F32.9 Major depressive disorder, single episode, unspecified; E78.5 Hyperlipidemia, unspecified; M19.072 Primary osteoarthritis, left ankle and foot; M19.071 Primary osteoarthritis, right ankle and foot; F17.210 Nicotine dependence, cigarettes, uncomplicated; Z79.01 Long term (current) use of anticoagulants; Z79.82 Long term (current) use of aspirin; Z23 Encounter for immunization
CPT/HCPCS: 36415; 71045; 71275; 80048; 80053; 81001; 83880; 84443; 84484; 85025; 85027; 87040; 87070; 87205; 90686; 93005; 93010; 93306; 94667; 94799; 96374; 96375; 99285; C1751; G0378; J0456; J0696; J1642; J1644; J1650; J1940; J3490; J7060

== ENCOUNTER 2019-10-23 06:03 | Day surgery (SDC) | payer MEDICARE ==
[2019-10-23 07:07] LABS: INTERNATIONAL RATION (INR) 1.06; PROTHROMBIN TIME 13.9 SEC (11.4-15.4)
[2019-10-23 07:08] LABS: PARTIAL THROMBOPLASTIN TIME 33.7 SEC (23.5-35.8)
[2019-10-23] MEDS ORDERED: MIDAZOLAM 2 MG/2 ML INJ ONE (07:31)
[2019-10-23] MEDS ORDERED: PROPOFOL INJ 200 MG/20 ML VIAL IV ONE (07:32)
--- NOTE | 2019-10-23 08:35 | RADIOLOGY REPORT (SQ) ---
EXAM DESCRIPTION: CHEST SINGLE VIEW COMPLETED DATE/TIME: 10/23/2019 7:57 am REASON FOR STUDY: preop COMPARISON: 10/05/2019. EXAM PARAMETERS: NUMBER OF VIEWS: One view. TECHNIQUE: Single frontal radiographic view of the chest acquired. RADIATION DOSE: NA LIMITATIONS: None. FINDINGS: LUNGS AND PLEURA: No opacities, masses or pneumothorax. No pleural effusion. MEDIASTINUM AND HILAR STRUCTURES: No masses. Contour normal. HEART AND VASCULAR STRUCTURES: Stable cardiomegaly. Normal vasculature. BONES: No acute findings. Degenerative changes in the spine. HARDWARE: None in the chest. OTHER: No other significant finding. IMPRESSION: STABLE CARDIOMEGALY. NO ACUTE RADIOGRAPHIC FINDING IN THE CHEST. TECHNICAL DOCUMENTATION: JOB ID: [id number] 2010 [employer]- All Rights Reserved Reading location - IP/workstation name: [email or web address]
--- NOTE | 2019-10-23 08:58 | PDOC CONSULTATION ---
Consultation Consult Date: 10/23/19 Attending physician:: ANNITA HUNT Provider Consulted: ANNITA HUNT Consult reason:: Atrial fibrillation History of Present Illness Admission Date/PCP: CAR COATS Patient complains of: Fatigue History of Present Illness: RAMYA CALLAHAN is a 63 year old female with recent admission to [facility] with CHF, Pneumonia and found to be in new onset atrial fibrillation with RVR. She was started on oral anticoagulation and was rate controlled. She saw me in the office. We discussed treatment options for atrial fibrillation and we decided to restore SR with ANGELA followed by DCCV if there was no LA thrombus. No prior surgeries that are major. Non smoker. No familial illnesses. Past Medical History Cardiac Medical History: Reports: Atrial Fibrillation, Hyperlipidema, Hypertension Denies: Congestive Heart Failure, Coronary Artery Disease, Myocardial Infarction Pulmonary Medical History: Reports: Pneumonia Denies: Asthma, Bronchitis, Chronic Obstructive Pulmonary Disease (COPD), Tuberculosis Neurological Medical History: Denies: Seizures Endocrine Medical History: Denies: Diabetes Mellitus Type 1, Diabetes Mellitus Type 2, Hypothyroidism Renal/ Medical History: Denies: End Stage Renal Disease GI Medical History: Denies: Cirrhosis, Gastroesophageal Reflux Disease Musculoskeltal Medical History: Reports: Arthritis - feet Psychiatric Medical History: Denies: Bipolar Disorder, Depression Hematology: Denies: Anemia, Bleeding Tendencies Past Surgical History Past Surgical History: Reports: Section, Hysterectomy Social History Smoking Status: Former Smoker Frequency of Alcohol Use: None Hx Recreational Drug Use: No Drugs: None Hx Prescription Drug Abuse: No Family History Family History: Reviewed & Not Pertinent Parental Family History Reviewed: No - No familial illnesses Children Family History Reviewed: NA Sibling(s) Family History Reviewed.: NA Medication/Allergy Home Medications: Metoprolol Succinate [Toprol Xl 25 mg Tab.sr] 25 mg PO DAILY 10/03/19 Acetaminophen [Tylenol 325 mg Tablet] 650 mg PO Q4HP PRN tablet 10/08/19 Apixaban [Eliquis 5 mg Tablet] 5 mg PO BID #60 tablet 10/08/19 Aspirin [Aspirin 81 mg Chewable Tablet] 81 mg PO DAILY #90 tab.chew 10/08/19 Buspirone HCl [Buspar 10 mg Tablet] 10 mg PO Q12 #60 tablet 10/08/19 Diltiazem HCl [Cardizem Cd 120 mg Capsule] 1 cap.sr PO BID #60 cap.sr 10/08/19 Furosemide [Lasix 40 mg Tablet] 40 mg PO QAM #30 tablet 10/08/19 Guaifenesin [Mucinex Sr 600 mg Tablet.sa] 600 mg PO Q12 #14 tablet.sa 10/08/19 Allergies/Adverse Reactions: No Known Allergies Allergy (Verified 10/23/19 06:11) Review of Systems Constitutional: PRESENT: fatigue Cardiovascular: PRESENT: dyspnea on exertion, edema, palpitations Gastrointestinal: PRESENT: as per HPI Physical Exam Vital Signs: Temp Pulse Resp BP Pulse Ox 97.5 F 78 20 143/71 H 92 10/23/19 06:10 10/23/19 06:10 10/23/19 06:10 10/23/19 06:10 10/23/19 06:10 Intake & Output 10/22/19 10/23/19 10/24/19 06:59 06:59 06:59 Intake Total 0 Balance 0 Weight 110.223 kg General appearance: PRESENT: cooperative, obese Head exam: PRESENT: atraumatic, normocephalic Eye exam: PRESENT: conjunctiva pink, EOMI Mouth exam: PRESENT: moist Teeth exam: PRESENT: poor dentation Respiratory exam: PRESENT: decreased breath sounds, symmetrical, unlabored Cardiovascular exam: PRESENT: irregular rhythm, +S1, +S2 Pulses: PRESENT: normal radial pulses GI/Abdominal exam: PRESENT: soft Rectal exam: PRESENT: deferred Extremities exam: PRESENT: pedal edema, +1 edema - Chronic Musculoskeletal exam: PRESENT: normal inspection Neurological exam: PRESENT: alert, awake, oriented to person, oriented to place Psychiatric exam: PRESENT: appropriate affect Skin exam: PRESENT: dry, intact, normal color Results Laboratory Results: 10/23/19 06:39 10/23/19 06:39 Potassium 4.4 EKG Comments: Telemetry shows atrial fibrillation with V rate 90-100 bpm Impressions: Chest X-Ray 10/23/19 00:00 IMPRESSION: STABLE CARDIOMEGALY. NO ACUTE RADIOGRAPHIC FINDING IN THE CHEST. Assessment & Plan - Diagnosis (1) Atrial fibrillation with rapid ventricular response Is this a current diagnosis for this admission?: Yes Plan: ANGELA DCCV if no LA thrombus Patient has been maintained on Apixaban-only ~ 2 weeks. Thus will perform ANGELA initially and if no LA thrombus will proceed with DCCV (2) CHF exacerbation Qualifiers: Heart failure type: diastolic Qualified Code(s): I50.33 - Acute on chronic diastolic (congestive) heart failure Is this a current diagnosis for this admission?: Yes Plan: Euvolemic now Will restore SR and this will help with CHF as well. - Notes Notes: Plan for ANGELA DCCV Informed consent for both procedures obtained and extensive discussion with patient and daugter in office as well as today prior to procedure. Risks of ANGELA include potential for mucosal injury to esophagus as well as esophageal perforation as well as adverse reactions to medications. DCCV- could result in dermal rucker or injury or other arrhythmias. Patient and family understand and are willing to proceed. All questions answered.
--- NOTE | 2019-10-23 09:30 | PDOC DISCHARGE SUMMARY ---
Impression - Admit/DC Date/PCP Admission Date/Primary Care Provider: CAR COATS Discharge Date: 10/23/19 - Discharge Diagnosis (1) Atrial fibrillation with rapid ventricular response Is this a current diagnosis for this admission?: Yes (2) CHF exacerbation Is this a current diagnosis for this admission?: Yes - Assessment Summary: Patient with the following problems 1. Acute decompensated congestive heart failure-diastolic 2. Systemic hypertension 3. Atrial fibrillation with RVR The following procedures were performed 1. Transesophageal echocardiogram 2. Direct current cardioversion ANGELA showed preserved LVEF, mild MR and trace TR. There was spontaneous echo contrast but no thrombus in the LA. Thus we proceeded with DCCV with 200 Joules synchronized which resulted in religious of SR. PLAN Continue Apixaban 5 mg PO BID Discontinue ASA. Continue other medications. Out patient follow up will be arranged. - Additional Information Referrals: ANNITA HUNT MD [ACTIVE STAFF] - JAGJIT YATES FNP-C [Primary Care Provider] - Home Medications: Metoprolol Succinate [Toprol Xl 25 mg Tab.sr] 25 mg PO DAILY 10/03/19 Acetaminophen [Tylenol 325 mg Tablet] 650 mg PO Q4HP PRN tablet 10/08/19 Apixaban [Eliquis 5 mg Tablet] 5 mg PO BID #60 tablet 10/08/19 Aspirin [Aspirin 81 mg Chewable Tablet] 81 mg PO DAILY #90 tab.chew 10/08/19 Buspirone HCl [Buspar 10 mg Tablet] 10 mg PO Q12 #60 tablet 10/08/19 Diltiazem HCl [Cardizem Cd 120 mg Capsule] 1 cap.sr PO BID #60 cap.sr 10/08/19 Furosemide [Lasix 40 mg Tablet] 40 mg PO QAM #30 tablet 10/08/19 Guaifenesin [Mucinex Sr 600 mg Tablet.sa] 600 mg PO Q12 #14 tablet.sa 10/08/19 History of Present Illiness History of Present Illness: RAMYA CALLAHAN is a 63 year old female with recent admission to [facility] with CHF, Pneumonia and found to be in new onset atrial fibrillation with RVR. She was started on oral anticoagulation and was rate controlled. She saw me in the office. We discussed treatment options for atrial fibrillation and we decided to restore SR with ANGELA followed by DCCV if there was no LA thrombus. No prior surgeries that are major. Non smoker. No familial illnesses. Physical Exam Vital Signs: Temp Pulse Resp BP Pulse Ox 97.5 F 80 20 120/65 93 10/23/19 08:51 10/23/19 09:06 10/23/19 09:06 10/23/19 09:06 10/23/19 09:06 Intake & Output 10/22/19 10/23/19 10/24/19 06:59 06:59 06:59 Intake Total 0 600 Output Total 0 Balance 0 600 Weight 110.223 kg General appearance: PRESENT: no acute distress, cooperative Head exam: PRESENT: atraumatic Eye exam: PRESENT: EOMI Respiratory exam: PRESENT: decreased breath sounds, symmetrical, unlabored Cardiovascular exam: PRESENT: RRR, +S1, +S2 GI/Abdominal exam: PRESENT: soft Rectal exam: PRESENT: deferred Neurological exam: PRESENT: alert, awake, oriented to person, oriented to place, oriented to time, oriented to situation Psychiatric exam: PRESENT: appropriate affect Skin exam: PRESENT: dry, intact, normal color Results Laboratory Results: PT 13.9 SEC (11.4-15.4) 10/23/19 06:39 INR 1.06 10/23/19 06:39 APTT 33.7 SEC (23.5-35.8) 10/23/19 06:39 Potassium 4.4 mmol/L (3.6-5.0) 10/23/19 06:39 Impressions: Chest X-Ray 10/23/19 00:00 IMPRESSION: STABLE CARDIOMEGALY. NO ACUTE RADIOGRAPHIC FINDING IN THE CHEST. Stroke Is this a Stroke Patient?: No Acute Heart Failure - Is this a Heart Failure Patient?: Yes Documentation of LVEF assessment?: Yes LVEF < 40%?: No- if no continue to question #3 a) Discharged on ACEI?: No, document contraindications - Diastolic CHF Reason(s) not discharge on ACEI: other - Diastolic b) Discharges on ARB?: No-document contraindications d) Discharged on evidence-based Beta paul(carvedilol, sustained release metoprolol succinate, or bisoprolol)?: Yes Reason(s) not discharged on Evidence-Based Beta Blockers (carvedilol, sustained released metoprolol succinate, or bisoprolol): Other e) For LVEF <35%, discharged on Aldosterone antagonist?: N/A (LVEF > or = 35%) Reason(s) not discharged on Aldosterone antagonist for LVEF < 35%: Other 3. Anticoagulant therapy for permanect/persistent/paraoxysmal Afib or Aflutter: N/A Follow-up Appointment scheduled within 7 days?: Yes
--- NOTE | 2019-10-23 09:38 | Progress Note ---
Provider Note Provider Note: PROCEDURE: DIRECT CURRENT CARDIOVERSION DATE : 10/23/2019 INDICATION: Atrial fibrillation, CHF ANESTHESIA: General anesthesia CLINICAL HISTORY: 63 year old with atrial fibrillation with RVR. We decided to proceed with ANGELA and if no LA thrombus was seen to restore SR with DCCV. PROCEDURE: Informed consent for both procedures was obtained. The patient was brought to the OR in fasting and non-sedated state. ANGELA was performed which showed preserved LVEF, mild MR and trace TR and no HESHAM thrombus. While patient was still sedated we applied 200 Joules synchronized direct current across defibrillator patches applied in an AP fashion. There was immediate congregational of SR. The patient was returned to the holding area. CONCLUSION Successful cardioversion of atrial fibrillation to sinus rhythm PLAN Continue apixaban 5 mg PO BID Discontinue ASA Continue other medications without change Outpatient follow up will be arranged.
[2019-10-23 11:06] VITALS: BP 118/69
--- NOTE | 2019-10-23 12:18 | EKG REPORT ---
SEVERITY:- NORMAL ECG - SINUS RHYTHM : Confirmed by: Peter Connor MD 23-Oct-2019 12:18:07
--- NOTE | 2019-10-23 12:51 | XCELERA REPORT ---
Study ID: [id number] [id number] Transesophageal Echocardiogram Report Name: RAMYA CALLAHAN Age: 63 yrs Gender: Female : 1955 Patient Status: Outpatient [facility] Study Date: 10/23/2019 08:23 AM History: Atrial fibrillation CHF Reason For Study: AFIB Ordering Physician: ANNITA HUNT Performed By: Mercedes King Interpretation Summary This degree of valvular regurgitation is within normal limits. Left ventricular systolic function is normal. Ejection Fraction = >55%. The right ventricle is normal in size and function. This degree of valvular regurgitation is within normal limits. No thrombus is detected in the left atrial appendage. There is no pericardial effusion. Left Ventricle The left ventricle is grossly normal size. There is borderline concentric left ventricular hypertrophy. Left ventricular systolic function is normal. Ejection Fraction = >55%. No regional wall motion abnormalities noted. Right Ventricle The right ventricle is normal in size and function. Atria The interatrial septum is intact with no evidence for an atrial septal defect. No thrombus is detected in the left atrial appendage. Spontaneous contrast in LA. The right atrium is borderline dilated. Mitral Valve The mitral valve is normal in structure and function. There is mild mitral regurgitation. Tricuspid Valve The tricuspid valve is normal in structure and function. There is trace tricuspid regurgitation. Aortic Valve The aortic valve is trileaflet. The aortic valve opens well. No hemodynamically significant valvular aortic stenosis. No aortic regurgitation is present. Pulmonic Valve The pulmonic valve is not well visualized. Arteries The aortic root is not well visualized. Mild atherosclerotic plaque(s) in the ascending aorta. Pericardium There is no pericardial effusion. : ANNITA HUNT Anil
== END 2019-10-23 10:40 | disposition home or self-care (01) ==
LOC: OROUT 06:03
PROVIDERS: ATTEND Internal Medicine
DX: I48.0 Paroxysmal atrial fibrillation (principal); I50.9 Heart failure, unspecified
CPT/HCPCS: 93312; 93325; 36415; 84132; 85610; 85730; 71045; 93005; 93010; J2250; J2704